=== PATIENT | female | born 1950 | race Caucasian/White ===

== ENCOUNTER → 2018-06-07 | Outpatient (REF) | payer MEDICARE, OTHER ==
[~2018-06-07] MED LIST: /AUGM875TA; ACET65TA; PRIL20CA
== END ==
LOC: M LAB REF 17:00
PROVIDERS: ATTEND Physician Assistant
DX: M54.5 Low back pain (principal)

== ENCOUNTER 2018-08-03 11:25 | Day surgery (SDC) | payer MEDICARE ==
[~2018-08-03] VITALS: Ht 152.4 cm; Wt 64.4 kg
[~2018-08-03 11:25] MED LIST changes: +AMLO10TA5 PO; +ASCO25TA PO; +ASPI81TA85 PO; +CALC1TAB9 PO; +CLOP75TA2 PO; +CYMB1CAP5 PO; +FERR325T3 PO; +MAG-84TA PO; +SIMV40TA2 PO; +STOO100C PO; +TIOT18INH INH; +VALS1TAB48 PO; +VITA-182 PO; +VITA250L PO
[2018-08-03] MEDS ORDERED: MIDAZOLAM INJ 2 MG/2 ML VIAL (J2250) As Ordered ONE (12:22)
[2018-08-03] MEDS ORDERED: CETACAINE SPRAY 5GM As Ordered ONE (13:16)
[2018-08-03 13:43] VITALS: BP 151/91
[2018-08-03] MEDS ORDERED: MIDAZOLAM INJ 2 MG/2 ML VIAL (J2250) IV ONE (14:30)
--- NOTE | 2018-08-03 17:55 | T-ECHO ---
DATE OF PROCEDURE: 08/03/2018 REFERRING PHYSICIAN: PREPROCEDURE DIAGNOSIS: Cryptogenic stroke. POSTPROCEDURE DIAGNOSIS: Cryptogenic stroke, patent foramen ovale with intraatrial septal aneurysm. FINDINGS: Patent foramen ovale associated with intraatrial septal aneurysm. PROCEDURE: Transesophageal echocardiogram with bubble study. SURGEON: Inocencio Le MD MEDIA ANALYTICS MANAGER: None. CONSCIOUS SEDATION: IV conscious sedation: Midazolam 2 mg IV. COMPLICATIONS: None. PROCEDURE DESCRIPTION: Patient received Cetacaine spray to the back of the pharynx. She received a total of 2 mg of Midazolam IV for light IV conscious sedation. Patient tolerated the procedure well without any immediate complications. Rhythm was sinus. Esophageal intubation was accomplished without difficulty using a Harsh's 3D transesophageal echocardiogram probe. A secundum type interatrial septal aneurysm was present. This was associated with a small patent foramen ovale that was demonstrated using a bubble injection via the right upper extremity with Valsalva maneuver release showing a small amount of shunting from the right atrium to the left atrium via the patent foramen ovale (PFO). The bubble study was accomplished using 8 mL of injectable normal saline with 1 mL of the patient's own blood withdrawn from the IV site combined with 1 mL of air which was then agitated back and forth between to 10 mL syringes by a three-way stopcock. The atrial appeared normal in size. No mass or thrombi were seen within the atria or their appendages. Pulmonary vein flow in the left upper pulmonary vein was normal. Aortic valve was three-cuspid and displayed mild focal thickening and focal calcific deposits. Trace aortic regurgitation was present. The mitral leaflets were structurally and functionally normal. Tricuspid leaflets and pulmonic valve were structurally and functionally normal. Normal left and right ventricle systolic function. The transgastric views were moderately technically difficult. No regional wall motion abnormalities of the left or right ventricles. No pericardial effusion. Distal aortic arch and descending thoracic aorta showed mild atherosclerosis. Left ventricle ejection fraction was 65% by visual estimate. CONCLUSIONS: 1. Small patent foramen ovale with right atrium to left atrium shunting demonstrated by bubble study with Valsalva maneuver release. 2. Secundum type interatrial septal aneurysm. 3. Very mild aortic valve sclerosis of a three-cuspid aortic valve. Trace aortic regurgitation. 4. Mild atherosclerosis of the distal aortic arch and descending thoracic aorta. 5. Normal left and right ventricle size and systolic function. Normal left ventricle regional wall motion. Left ventricular ejection fraction (LVEF) 65% by visual estimate.
== END 2018-08-03 13:59 | disposition home or self-care (01) ==
LOC: M OPP 11:25
PROVIDERS: ATTEND Internal Medicine Cardiovascular Disease
DX: I63.9 Cerebral infarction, unspecified (principal)
CPT/HCPCS: 93312; 93320; 93325; J2250

== ENCOUNTER 2018-08-05 10:46 | Day surgery (SDC) | payer MEDICARE ==
[~2018-08-05] VITALS: Ht 152.4 cm; Wt 64.8 kg
[~2018-08-05 10:46] MED LIST changes: +NS 1,000 ML IV SCH
[2018-08-05] MEDS ORDERED: ceFAZolin SOD 1 GM in D5W MINI-BAG PLUS 50 ML IV ONE (11:15)
[2018-08-05] MEDS ORDERED: LR 1,000 ML IV ONE (11:15)
[2018-08-05] MEDS ORDERED: LIDOCAINE 2% INJ 100 MG/5 ML SDV (FOR ANES.) As Ordered ONE (12:55)
[2018-08-05] MEDS ORDERED: PROPOFOL 200 MG/20 ML VIAL As Ordered ONE (12:55)
[2018-08-05] MEDS ORDERED: fentaNYL 100 MCG/2 ML INJECTION (J3010) As Ordered ONE (12:55)
[2018-08-05] MEDS ORDERED: MIDAZOLAM INJ 2 MG/2 ML VIAL (J2250) As Ordered ONE (12:55)
[2018-08-05] MEDS ORDERED: LIDOCAINE 1% MDV 20ML VIAL As Ordered ONE (13:54)
--- NOTE | 2018-08-05 14:22 | RO ---
DATE OF PROCEDURE: 08/05/2018 PREOPERATIVE DIAGNOSIS: Cryptogenic stroke. POSTOPERATIVE DIAGNOSIS: Cryptogenic stroke. PROCEDURE PERFORMED: Implantation of Medtronic implantable loop recorder. SURGEON: Inocencio Le MD LIFE TRAINER: None. ANESTHESIA: Lidocaine 1% local/monitored anesthetic care. FINDINGS: Cryptogenic stroke. No specimens. Estimated blood loss less than 1 mL. No blood products replaced. No drains. No complications. PROCEDURE DESCRIPTION: Patient was prepped and draped over the sternum and left anterior chest. Lidocaine 1% was used for local anesthetic. An incision, approximately 1 cm in length, was made with a #15 blade through the skin at approximately the left 4th interspace about 1 inch lateral to the left parasternal border. The guide on the insertion tool was then placed into the incision and advanced in the subcutaneous tissue parallel to the chest wall in a caudal direction. The insertion tool was then rotated 180 degrees. The plunger was used then to drive the loop recorder into the subcutaneous tissue. The plunger was removed and then the insertion tool was removed leaving the loop recorder behind. The initial R wave amplitude measured 0.31 mV. The skin was then approximated using a subcuticular stitch consisting of #4-0 Biosyn with the ends of the sutures protruding from the skin at both side of the incision. Next, two layers of Dermabond was applied. The Biosyn suture was then removed entirely from the incision line. Next, Mastisol was placed to both sides of the incision perpendicular to the incision being careful not to get the Mastisol on the Dermabond. After the Dermabond was dry, three half inch Steri-Strips cut in half were placed perpendicular to the incision line. Patient tolerated the procedure well without any immediate complications. The implantable loop recorder implanted was a [employer] Reveal LINQ, model LNQ11 with serial number [id number].
[2018-08-05 14:45] VITALS: BP 154/78
== END 2018-08-05 15:08 | disposition home or self-care (01) ==
LOC: M SDC 10:46
PROVIDERS: ATTEND Internal Medicine Cardiovascular Disease
DX: I63.9 Cerebral infarction, unspecified (principal); R94.31 Abnormal electrocardiogram [ECG] [EKG]; E83.42 Hypomagnesemia; E87.6 Hypokalemia; I10 Essential (primary) hypertension; E78.00 Pure hypercholesterolemia, unspecified; G25.81 Restless legs syndrome; F32.9 Major depressive disorder, single episode, unspecified; E55.9 Vitamin D deficiency, unspecified; D64.9 Anemia, unspecified; Z98.84 Bariatric surgery status; Z79.82 Long term (current) use of aspirin; Z79.899 Other long term (current) drug therapy; E66.3 Overweight
CPT/HCPCS: 33285; C1764; J0690; J2250; J3010

== ENCOUNTER 2018-08-09 11:59 | Inpatient (IN) | payer MEDICARE ==
[~2018-08-09] VITALS: Ht 152.4 cm; Wt 67.7 kg
[~2018-08-09 11:59] MED LIST changes: -ASCO25TA PO; -NS 1,000 ML IV SCH; -VALS1TAB48 PO; +VALS1TAB68 PO; +VITA1TAB23 PO
[2018-08-09] MEDS ORDERED: NS 1,000 ML IV ONE (12:15)
[2018-08-09 12:21] LABS: ABG BASE EXCESS -5.1 (-2.0-2.0); ABG HCO3 18.6 MEQ/L (22.0-26.0); ABG PARTIAL PRESSURE CO2 28.6 mmHg (35.0-45.0); ABG STANDARD HCO3 20.2 MEQ/L (22.0-26.0); ABG TOTAL CO2 19.5 MEQ/L (23.0-31.0); ABG pH (ARTERIAL) 7.432 UNITS (7.350-7.450)
[2018-08-09 12:37] LABS: BASO % 0.4 % (0.0-1.0); EOS % 0.6 % (0.0-3.0); LYMPH # 1.6 10^3/uL (1.5-4.5); LYMPH % 22.8 % (24.0-44.0); MEAN CORPUSCULAR HGB CONC 32.4 g/dl (32.0-36.5); MEAN CORPUSCULAR VOLUME 92.5 fl (80.0-96.0); MONO # 0.2 10^3/uL (0.0-0.8); MONO % 3.3 % (0.0-5.0); NEUTROPHILS % 71.5 % (36.0-66.0); PLATELET COUNT, AUTOMATED 233 10^3/uL (150-450); RED BLOOD COUNT 2.27 10^6/uL (4.00-5.40)
[2018-08-09 12:44] LABS: HEMOGLOBIN 6.8 g/dl (12.0-15.5)
--- NOTE | 2018-08-09 12:51 | REP ---
CT Head without contrast HISTORY: Syncope COMPARISON: None Areas of decreased attenuation are present in the basal ganglia. These represent old lacunar infarctions. Areas of decreased attenuation are present in the periventricular and subcortical white matter. This represents small-vessel ischemic disease. There is no intraparenchymal hemorrhage, acute infarct, mass or midline shift. The ventricular system and cortical sulci are dilated consistent with minimal volume loss. There is no extra cerebral collection. There is no fracture. The visualized sinuses are clear. IMPRESSION: 1. Old bilateral basal ganglia lacunar infarctions. 2. Small vessel ischemic disease. 3. Minimal volume loss. Electronically Signed by Cole Parrish MD 08/09/2018 12:42 P
[2018-08-09 12:53] LABS: INR 1.09; PARTIAL THROMBOPLASTIN TIME 23.7 SECONDS (25.4-37.6); PROTHROMBIN TIME 14.2 SECONDS (12.1-14.4)
--- NOTE | 2018-08-09 12:54 | REP ---
CT cervical spine without contrast HISTORY: Syncope COMPARISON: None There is no acute fracture or subluxation. Disc bulges are present at the C3-4, C4-5 and C6-7 levels. A disc bulge with associated osteophyte formation is present at the C5-6 level. There is minimal narrowing of the spinal canal. Uncinate process and/or facet hypertrophy are present at the the C3-4 through C5-6 levels. These findings produce minimal narrowing of the neural foramina. The C5-6 intervertebral disc is decreased in height consistent with disc degeneration. IMPRESSION: 1. There is no acute fracture or subluxation. 2. There is cervical spondylosis at the C3-4 through C6-7 levels. Electronically Signed by Cole Parrish MD 08/09/2018 12:46 P
[2018-08-09 13:09] LABS: BLOOD UREA NITROGEN 60 MG/DL (7-18); CARBON DIOXIDE LEVEL 22 MEQ/L (21-32); CHLORIDE LEVEL 110 MEQ/L (98-107); CPK CREATINE PHOSPHOKINASE 41 U/L (26-192); CREATININE FOR GFR 0.85 MG/DL (0.55-1.30); ETHYL ALCOHOL (ETHANOL) < 0.003 % (0.000-0.010); FREE T4 1.02 NG/DL (0.76-1.46); GLOMERULAR FILTRATION RATE > 60.0 (>45); GLUCOSE, FASTING 181 MG/DL (70-100); MB/CK RELATIVE INDEX 2.68 (< OR =4); POTASSIUM SERUM 3.9 MEQ/L (3.5-5.1); SODIUM LEVEL 142 MEQ/L (136-145); TROPONIN I < 0.02 NG/ML (< 0.10)
--- NOTE | 2018-08-09 13:57 | REP ---
CHEST, SINGLE VIEW: There is no evidence of acute infiltrate. No pleural effusion is seen. The heart is normal in size. The mediastinal silhouette is unremarkable. The visualized osseous structures are intact. IMPRESSION: No acute pulmonary disease. Electronically Signed by Lucio Mchugh MD 08/10/2018 10:12 A
[2018-08-09] MEDS: NS 1,000 ML IV SCH (14:19)
[2018-08-09] MEDS ORDERED: MORPHINE 4 MG/ML 1ML VIAL/SYRINGE (J2270) IV PRN (14:30)
--- NOTE | 2018-08-09 16:10 | HPE ---
DATE OF ADMISSION: 08/09/2017 68-year-old female with a past medical history of hypertension, hyperlipidemia, history of cryptogenic infarct secondary to PFO with left hemiparesis, dysarthria, presents to the emergency room after having a syncopal event while visiting a friend who just had a baby at [facility]. The patient apparently went apneic. Cardiopulmonary resuscitation (CPR) was performed with successful resuscitation and was brought to our emergency room for evaluation. In the emergency room, she was awake, alert and oriented times three with just rib pain, which likely came from the CPR. She has not had any similar symptoms in the past. At this time, she denies any chest pain or shortness of breath. She does note that she has had some blood in her mouth since she had her JUNE approximately 6 days ago. Routine laboratories showed her hemoglobin was 6.8, but her last hemoglobin documented here in 2008 was a hemoglobin of 10. She has no history of gastrointestinal bleed in the past. The patient was started on IV fluids and was typed and crossed for 2 units of packed red blood cell and 1 unit is about to be hung. She will be admitted for further management. PAST MEDICAL HISTORY: Again, past medical history of: 1. Hypertension. 2. Hyperlipidemia. 3. Morbid obesity, status post bariatric surgery. 4. History of cryptogenic stroke secondary to PFO with left hemiparesis and dysarthria, which is now resolved. 5. Depression. ALLERGIES: She has drug allergies to SULFA MEDICATIONS, SULFA CROSS REACTORS. FAMILY HISTORY: Negative for early coronary artery disease. SOCIAL HISTORY: The patient denies tobacco, alcohol, or illicit drugs. MEDICATIONS: She takes at home: - amlodipine 10 mg by mouth daily - vitamin C 250 mg by mouth daily - aspirin 81 mg by mouth daily - vitamin D3 1000 units by mouth daily - cyanocobalamin 250 mcg by mouth daily - Colace 100 mg by mouth daily - Cymbalta 30 mg by mouth daily - ferrous sulfate 325 mg by mouth daily - simvastatin 40 mg by mouth at bedtime - valsartan 320 mg by mouth daily - Plavix 75 mg by mouth daily - calcium citrate 950 mg by mouth daily - magnesium lactate 84 mg by mouth daily REVIEW OF SYSTEMS: Negative for all ten major systems except what is mentioned in the history of present illness. PHYSICAL EXAMINATION: VITAL SIGNS: Blood pressure 114/66, heart rate is 74 and regular, respiratory rate is 20, temperature is 95.8 temporal. Oxygen saturation is 100% on room air. Head is atraumatic, normocephalic. Pale conjunctivae noted. Neck is supple with no jugular venous distention (JVD). Lungs clear to auscultation. S1, S2 audible. No murmurs appreciated. Abdomen is soft. Positive bowel sounds. No pedal edema. Skin is intact. Neurologic examination, the patient has no focality and is awake, alert and oriented times three. LABORATORIES: WBC 7, hemoglobin 6.8, hematocrit 21, platelets are 233,000. Sodium 142, potassium 3.9, chloride 110, CO2 of 22, BUN 65, creatinine 0.85. Toxicology screen showed ethyl alcohol level less than 0.003. PT 14.2, INR 1.09, PTT is 22.7. 12-lead electrocardiogram (EKG) showed no acute ST abnormality. IMPRESSION: 1. Syncope. 2. Acute blood loss anemia. PLAN: The patient is to be admitted to the progressive care unit (PCU). We will get a second troponin to rule out acute coronary artery syndrome. Dr. Le saw the patient downstairs already and we have ruled out cardiac reasons for the syncope. THe loop recorder that she has on showed no evidence of arrhythmia. The likely scenario is that she has likely a slow bleed after the JUNE, which has caused her hemoglobin to drop and likely caused her to pass out. We will have Dr. Saravia see the patient. I will continue all preadmission medications, but I will hold her Plavix. We will continue her care in the progressive care unit (PCU). We will also follow her post transfusion complete blood count (CBC).
[2018-08-09 16:45] VITALS: BP 139/67
[2018-08-09] MEDS: PANTOPRAZOLE 40MG INJ (PROTONIX) (C9113) IV SCH (17:50)
--- NOTE | 2018-08-09 19:26 | REP ---
Clinical: Rule out esophageal injury. Technique: Axial noncontrast images from the thoracic inlet to the upper abdomen with coronal and sagittal re-formations. Findings: The bilateral lung patel are clear and without consolidation/contusion, effusion or pneumothorax. Tracheobronchial tree is patent. Mediastinum demonstrates atherosclerotic changes to the thoracic aorta and coronary arteries without aortic aneurysm or cardiomegaly. No pericardial effusion. The esophagus is relatively normal in appearance. No paraesophageal fluid or extraluminal gas is identified. No evidence for pneumomediastinum. Limited evaluation of the upper abdomen demonstrates prior gastric bypass surgery. Normal bilateral adrenal glands. Surrounding musculoskeletal structures demonstrate age-related changes without focal osseous abnormality. Impression: 1. Relatively normal noncontrast CT of the chest. No acute mediastinal or pleuroparenchymal process. Specifically, no obvious esophageal abnormality or pneumomediastinum. 2. Atherosclerotic changes to the thoracic aorta and coronary arteries. Electronically Signed by Darrion Carlton MD 08/09/2018 07:18 P
--- NOTE | 2018-08-09 19:57 | ECGEPIP ---
Stationary ECG Study [facility] - ED Test Date: 2018-08-09 Pat Name: SANJUANITA CAMERON Department: Room: [place] [address] Gender: F Brass Pickler: : 1950 Requested By: VERNON Cruz Order Number: [id number] Reading MD: Darin Parmar Measurements Intervals [place] Rate: 73 P: 30 GA: 168 QRS: -14 QRSD: 106 T: 94 QT: 418 QTc: 463 Interpretive Statements SINUS RHYTHM MODERATE T-WAVE ABNORMALITY, CONSIDER LATERAL ISCHEMIA NO PRIORS FOR COMPARISON Electronically Signed On 08-09-2018 19:56:55 EDT by Darin Parmar
[2018-08-09 20:00] VITALS: BP 111/63
[2018-08-09] MEDS: SIMVASTATIN 40 MG TAB PO SCH (22:06)
[2018-08-09 22:25] VITALS: BP 112/64
[2018-08-09 22:35] VITALS: BP 126/66
[2018-08-09] MEDS ORDERED: GOLYTELY SOLN 4000 ML BTL PO ONE (23:00)
[2018-08-09 23:35] VITALS: BP 122/62
[2018-08-10 01:25] VITALS: BP 139/77
[2018-08-10 01:59] LABS: HEMATOCRIT 26.6 % (36.0-47.0); HEMOGLOBIN 8.7 g/dl (12.0-15.5)
[2018-08-10] MEDS: NS 1,000 ML IV SCH ×3 (03:05→16:30)
[2018-08-10 04:00] VITALS: BP 132/64
[2018-08-10 05:02] LABS: BASO % 0.2 % (0.0-1.0); EOS # 0.1 10^3/uL (0.0-0.50); EOS % 0.5 % (0.0-3.0); HEMATOCRIT 27.2 % (36.0-47.0); HEMOGLOBIN 9.2 g/dl (12.0-15.5); LYMPH # 1.7 10^3/uL (1.5-4.5); LYMPH % 17.6 % (24.0-44.0); MEAN CORPUSCULAR HEMOGLOBIN 30.4 pg (27.0-33.0); MEAN CORPUSCULAR HGB CONC 33.8 g/dl (32.0-36.5); MEAN CORPUSCULAR VOLUME 89.8 fl (80.0-96.0); MONO # 0.6 10^3/uL (0.0-0.8); MONO % 6.2 % (0.0-5.0); NEUTROPHILS # 7.3 10^3/uL (1.8-7.7); PLATELET COUNT, AUTOMATED 197 10^3/uL (150-450); RED BLOOD COUNT 3.03 10^6/uL (4.00-5.40); WHITE BLOOD COUNT 9.7 10^3/uL (4.0-10.0)
[2018-08-10 05:20] LABS: BLOOD UREA NITROGEN 35 MG/DL (7-18); CALCIUM LEVEL 8.1 MG/DL (8.8-10.2); CARBON DIOXIDE LEVEL 25 MEQ/L (21-32); CHLORIDE LEVEL 111 MEQ/L (98-107); CREATININE FOR GFR 0.84 MG/DL (0.55-1.30); GLOMERULAR FILTRATION RATE > 60.0 (>45); GLUCOSE, FASTING 102 MG/DL (70-100); POTASSIUM SERUM 3.7 MEQ/L (3.5-5.1); SODIUM LEVEL 144 MEQ/L (136-145)
[2018-08-10] MEDS ORDERED: MAGNESIUM CITRATE 300 ML BTL PO ONE (06:00)
[2018-08-10] MEDS: PANTOPRAZOLE 40MG INJ (PROTONIX) (C9113) IV SCH ×2 (06:06→17:46)
[2018-08-10 08:00] VITALS: BP 172/81
--- NOTE | 2018-08-10 08:25 | CR.PDOC ---
General Surgery Consultation Date of Consultation 08/10/18 History and Physical CONSULT REPORT FOR: Dr. Healy (hospitalist service) REASON FOR CONSULTATION: Nausea and post hemorrhagic anemia HISTORY OF PRESENT ILLNESS: Patient is 68-year-old female who had a cardiorespiratory arrest this morning when she was visiting in our hospital. She was visiting someone in the hospital when she fainted in the hallways and was noted to be in respiratory arrest. She underwent CPR and was revived. She was brought down to the emergency room and was found to be profoundly anemic with a hemoglobin of 6.8. On talking to her she reports intermittent passage of black stools likewise spitting up of red blood for the past week. Coincidentally she underwent transesophageal echocardiogram last week. She is denying any chest pains, abdominal discomfort, hematochezia. She several years removed from gastric bypass. She denies any problems related to her gastric bypass. She denies any prior upper or lower endoscopy. She tells me she had acholic or test done earlier this year which was negative. She is on aspirin and Plavix for prior episodes of CVA. PAST MEDICAL HISTORY: 1.hypertension 2. CVA 3. hyperlipidemia 4. depression 5. h/o morbid obesity s/p gastric bypass PAST SURGICAL HISTORY: INCLUDES: 1. laparoscopic gastric bypass () 2. JUNE and placement of loop recorder last week PREVIOUS ANESTHESIA REACTIONS: denies ALLERGIES: Please see below. FAMILY HISTORY: noncontributory HOME MEDICATIONS: Please see below. REVIEW OF SYSTEMS: GENERAL: Patient denies feeling lightheaded though has been weak and from her daughter reports episodes of falls most recent about 2 weeks ago where she fell on her buttocks with some bruising on her left hip area. She has had at least 2 CVAs. She still has some problems with speech but denies any problems with swallowing. After the JUNE last week had some bleeding related to her tooth but denies any marcela hematemesis or hemoptysis. HEENT: Denies blurred vision and double vision. Denies ear symptoms. Denies hoarseness. NECK: Denies any neck pain CARDIOVASCULAR: She denies any chest pains but reports some palpitation-like symptoms. Recent see EEA and placement of loop recorder MUSCULOSKELETAL: Feels some generalized weakness, pain and left hip area from recent fall. SKIN: Resolving hematoma in the left hip. NEUROLOGIC: Patient with prior history of strokes. PSYCHIATRIC: Reports prior diagnosis of depression. ENDOCRINE: Denies thyroid disease. HEMATOLOGY/ONCOLOGY: Denies bleeding or clotting disorder. Patient on aspirin and Plavix for her CVA. PULMONARY: Denies chronic cough, dyspnea and wheezing. GASTROINTESTINAL: Reports passage of black stools and cleared of its tarry. She is on iron but reports his stools are darker than what's normal for an somewhat semi-formed. No previous colonoscopies were upper endoscopies. She is status post gastric bypass about 10 years ago. GENITOURINARY: Denies dysuria, frequency, hematuria and nocturia. ENDOCRINE: Denies polydipsia, polyphagia, polyuria, heat or cold intolerance. INFECTIOUS: Denies any recent upper respiratory tract infection, UTI, need for use of antibiotics. NUTRITION: Reports fair appetite. PHYSICAL EXAMINATION: VITALS SIGNS: Please see below. GENERAL APPEARANCE:Patient seen, laying in bed, awake, alert, and oriented. Comfortable, in no acute distress. SKIN: Warm and moist. HEENT: Normocephalic, atraumatic. [place]ie palpebral conjunctiva, anicteric sclerae. Lips and mucosa appear moist. NECK: Supple, no thyromegaly. No obvious jugular venous distention. LUNGS: Clear to auscultation bilaterally. No wheezing appreciated. HEART: No chest wall abnormalities. Regular rate and rhythm with no murmurs appreciated. ABDOMEN: Abdomen is nondistended, soft, nontender on palpation EXTREMITIES: Extremities have no deformities. No edema identified ANCILLARIES: . LABORATORY DATA: Please see below. IMAGING STUDIES: CT head 1. Old bilateral basal ganglia lacunar infarctions. 2. Small vessel ischemic disease. 3. Minimal volume loss. CT Chest 1. Relatively normal noncontrast CT of the chest. No acute mediastinal or pleuroparenchymal process. Specifically, no obvious esophageal abnormality or pneumomediastinum. 2. Atherosclerotic changes to the thoracic aorta and coronary arteries. IMPRESSION AND PLAN: Post hemorrhagic anemia gastric bypass status On my conversation with our hospitalist, ask him to perform a CT of the chest using a Storz some trauma related to her JUNE last week as initially she was reporting spitting out some blood after the procedure but this turns out to be because she had some loose tooth after the procedure. CT of the chest was negative for any contusion to the esophagus. She had previous gastric bypass and probably may be at risk for forming anastomotic ulcers. There are also some reports of patient's forming ulcers within the remnant stomach though this will be hard to discover via an endoscopy or any other study. She had a colon or test according to her early this year which was negative and still had a colonoscopy. Reports black stools with thus most likely source of bleeding is upper GI given that she has not had any previous colonoscopies I will prep her and at the same time perform a colonoscopy. Will schedule patient for UGI endoscopy and colonoscopy. Consent was obtained from the patient. Her daughter was at the bedside with her and they answered her questions and concerns at the time that I saw the patient. Further recommendations after the procedure. Vital Signs Vital Signs Date Time Temp Pulse Resp B/P (MAP) Pulse Ox O2 Delivery O2 Flow Rate FiO2 08/10/18 01:25 98.6 69 20 139/77 (97) 98 08/09/18 14:12 Room Air I&Os I&O- Last 24 Hours up to 6 AM 08/10/18 05:59 Intake Total 0 ml Output Total 900 ml Balance -900 ml Laboratory Data Labs 24H Laboratory Tests 2 08/09/18 12:03: Blood Gas Bicarbonate Standard 20.2L, Arterial Blood pH 7.432, Arterial Blood Partial Pressure CO2 28.6L, Arterial Blood Partial Pressure O2 378.0H, Arterial Blood Total CO2 19.5L, Arterial Blood HCO3 18.6L, Arterial Blood Base Excess - 5.1L, Arterial Blood Oxygen Saturation 99.0 08/09/18 12:25: Immature Granulocyte % (Auto) 1.4, White Blood Count 7.0, Red Blood Count 2.27L, Hemoglobin 6.8*L, Hematocrit 21.0L, Mean Corpuscular Volume 92.5, Mean Corpuscular Hemoglobin 30.0, Mean Corpuscular Hemoglobin Concent 32.4, Red Cell Distribution Width 14.3, Platelet Count 233, Neutrophils (%) (Auto) 71.5H, Lymphocytes (%) (Auto) 22.8L, Monocytes (%) (Auto) 3.3, Eosinophils (%) (Auto) 0.6, Basophils (%) (Auto) 0.4, Neutrophils # (Auto) 5.0, Lymphocytes # (Auto) 1.6, Monocytes # (Auto) 0.2, Eosinophils # (Auto) 0.0, Basophils # (Auto) 0.0, Nucleated Red Blood Cells % (auto) 0.0, Prothrombin Time 14.2, Prothromb Time International Ratio 1.09, Activated Partial Thromboplast Time 23.7L, Anion Gap 10, Glomerular Filtration Rate > 60.0, Blood Urea Nitrogen 60H, Creatinine 0.85, Sodium Level 142, Potassium Level 3.9, Chloride Level 110H, Carbon Dioxide Level 22, Calcium Level 9.0, Total Creatine Kinase 41, Magnesium Level 2.0, Creatine Kinase MB 1.0, Creatine Kinase MB Relative Index 2.68, Troponin I < 0.02, Thyroid Stimulating Hormone (TSH) 2.290, Free Thyroxine 1.02, Ethyl Alcohol Level < 0.003 08/09/18 17:45: Troponin I 0.04# CBC/BMP Laboratory Tests 08/09/18 12:25 Red Blood Count 2.27 L, Mean Corpuscular Volume 92.5, Mean Corpuscular Hemoglobin 30.0, Mean Corpuscular Hemoglobin Concent 32.4, Red Cell Distribution Width 14.3, Neutrophils (%) (Auto) 71.5 H, Lymphocytes (%) (Auto) 22.8 L, Monocytes (%) (Auto) 3.3, Eosinophils (%) (Auto) 0.6, Basophils (%) (Auto) 0.4, Neutrophils # (Auto) 5.0, Lymphocytes # (Auto) 1.6, Monocytes # (Auto) 0.2, Eosinophils # (Auto) 0.0, Basophils # (Auto) 0.0, Calcium Level 9.0, Total Creatine Kinase 41 Home Medications Scheduled Amlodipine Besylate (Amlodipine Besylate) 10 Mg Tab, 10 MG PO DAILY, (Reported) Ascorbic Acid (Vitamin C) 250 Mg Tab, 250 MG PO DAILY, (Reported) Aspirin (Aspir-81) 81 Mg Tab, 81 MG PO DAILY, (Reported) Calcium Citrate (Calcitrate) 950 Mg Tab, 950 MG PO DAILY, (Reported) Cholecalciferol (Vitamin D3) 1,000 Unit Cap, 1,000 UNIT PO DAILY, (Reported) Clopidogrel Bisulfate (Clopidogrel) 75 Mg Tab, 75 MG PO QHS, (Reported) Cyanocobalamin (Vitamin B 12) 250 Mcg Donte, 1,000 MCG PO DAILY, (Reported) Docusate Sodium (Stool Softener) 100 Mg Cap, 100 MG PO DAILY, (Reported) Duloxetine Hcl (Cymbalta) 30 Mg Cap, 30 MG PO DAILY, (Reported) Ferrous Sulfate (Ferrous Sulfate) 325 Mg Tab, 325 MG PO DAILY, (Reported) Magnesium Lactate (Mag-Tab Sr) 84 Mg Tab, 84 MG PO DAILY, (Reported) Simvastatin - High Dose (Simvastatin) 40 Mg Tab, 40 MG PO QHS, (Reported) Valsartan (Valsartan) 320 Mg Tab, 320 MG PO DAILY, (Reported) Allergies Coded Allergies: Sulfa (Sulfonamide Antibiotics) (Verified Allergy, Unknown, 08/10/18) STEFF VERA MD Aug 10, 2018 02:08
[2018-08-10] MEDS ORDERED: CYANOCOBALAMIN 250 MCG TABLET PO SCH (09:00)
[2018-08-10] MEDS: DOCUSATE SODIUM 100 MG CAP PO SCH (09:00)
[2018-08-10] MEDS: ASCORBIC ACID 250 MG TAB PO SCH (10:08)
[2018-08-10] MEDS: DULoxetine 30 MG CAP (CYMBALTA) PO SCH (10:08)
[2018-08-10] MEDS: amLODIPine 10 MG TAB PO SCH (10:09)
[2018-08-10] MEDS: VITAMIN D 1,000 INTERNATIONAL UNITS TABLET PO SCH (10:10)
[2018-08-10] MEDS: CYANOCOBALAMIN 500 MCG TAB PO SCH (10:10)
[2018-08-10] MEDS: VALSARTAN 80 MG TAB (DIOVAN) PO SCH (10:10)
[2018-08-10] MEDS: FERROUS SULFATE 325MG TAB PO SCH (10:11)
[2018-08-10 12:00] VITALS: BP 136/84
[2018-08-10] MEDS ORDERED: PROPOFOL 500 MG/50 ML VIAL As Ordered ONE (13:52)
[2018-08-10] MEDS ORDERED: fentaNYL 100 MCG/2 ML INJECTION (J3010) As Ordered ONE (13:53)
[2018-08-10] MEDS ORDERED: LIDOCAINE 2% INJ 100 MG/5 ML SDV (FOR ANES.) As Ordered ONE (13:53)
--- NOTE | 2018-08-10 13:59 | IPNPDOC ---
Subjective Date Seen The patient was seen on 08/10/18. Subjective Chief Complaint/HPI Patient seen and examined at the bedside. She reports that she is feeling much better this morning. However, notes that she has been having dark colored stools since yesterday. Her hemoglobin count has remained stable. She is tentatively scheduled for an EGD and colonoscopy today with general surgery. Objective Physical Examination General Exam: Positive: Alert, Cooperative, No Acute Distress ENT Exam: Positive: Atraumatic, Mucous membr. moist/pink Neck Exam: Negative: JVD Chest Exam: Positive: Clear to auscultation, Normal air movement Heart Exam: Positive: Rate Normal, Normal S1, Normal S2 Abdomen Exam: Positive: Soft Extremity Exam: Negative: Tenderness, Swelling Psych Exam: Positive: Oriented x 3 Assessment /Plan Plan/VTE VTE Prophylaxis Ordered?: Yes Plan Symptomatic Anemia/Syncope 2/2 Upper GI Bleed In patient with Hx of Laparoscopic Gastric Bypass Surgery in and recent JUNE on 08/03/18 Hgb noted to be 6.8 during work up s/p 2 Units of PRBC transfusion--stable H&H this AM Surgery consulted-->Patient scheduled for EGD and Colonoscopy today Patient NPO, IVF Hydration, IV Protonix ordered 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 Le as outpatient Hypertension Continue amlodipine, valsartan Dyslipidemia Continue statin Anxiety/depression Continue Cymbalta Hx of Laparoscopic Gastric Bypass Surgery in DVT Prophylaxis SCDs/TEDs VS, I&O, 24H, [facility] Vital Signs/I&O Vital Signs Date Time Temp Pulse Resp B/P (MAP) Pulse Ox O2 Delivery O2 Flow Rate FiO2 08/10/18 10:10 172/81 08/10/18 08:00 98.3 72 20 99 08/09/18 14:12 Room Air I&O- Last 24 Hours up to 6 AM 08/10/18 06:00 Intake Total 1375 ml Output Total 1000 ml Balance 375 ml Laboratory Data 24H LABS Laboratory Tests 2 08/09/18 17:45: Troponin I 0.04# 08/10/18 04:50: Immature Granulocyte % (Auto) 0.5, White Blood Count 9.7, Red Blood Count 3.03L, Hemoglobin 9.2L, Hematocrit 27.2L, Mean Corpuscular Volume 89.8, Mean Corpuscular Hemoglobin 30.4, Mean Corpuscular Hemoglobin Concent 33.8, Red Cell Distribution Width 15.7H, Platelet Count 197, Neutrophils (%) (Auto) 75.0H, Lymphocytes (%) (Auto) 17.6L, Monocytes (%) (Auto) 6.2H, Eosinophils (%) (Auto) 0.5, Basophils (%) (Auto) 0.2, Neutrophils # (Auto) 7.3, Lymphocytes # (Auto) 1.7, Monocytes # (Auto) 0.6, Eosinophils # (Auto) 0.1, Basophils # (Auto) 0.0, Nucleated Red Blood Cells % (auto) 0.0, Anion Gap 8, Glomerular Filtration Rate > 60.0, Blood Urea Nitrogen 35H, Creatinine 0.84, Sodium Level 144, Potassium Level 3.7, Chloride Level 111H, Carbon Dioxide Level 25, Calcium Level 8.1L CBC/BMP Laboratory Tests 08/10/18 01:49 08/10/18 04:50 Red Blood Count 3.03 L, Mean Corpuscular Volume 89.8, Mean Corpuscular Hemo globin 30.4, Mean Corpuscular Hemoglobin Concent 33.8, Red Cell Distribution Width 15.7 H, Neutrophils (%) (Auto) 75.0 H, Lymphocytes (%) (Auto) 17.6 L, Monocytes (%) (Auto) 6.2 H, Eosinophils (%) (Auto) 0.5, Basophils (%) (Auto) 0.2, Neutrophils # (Auto) 7.3, Lymphocytes # (Auto) 1.7, Monocytes # (Auto) 0.6, Eosinophils # (Auto) 0.1, Basophils # (Auto) 0.0, Calcium Level 8.1 L PRAVIN HARRISON MD Aug 10, 2018 13:59
--- NOTE | 2018-08-10 15:37 | ROOR ---
Patient Name: Niyah Block Procedure Date: 08/10/2018 2:49 PM Date of : 1950 Age: 68 Room: [facility] Gender: Female Note Status: Finalized Procedure: Upper GI endoscopy Indications: Acute post hemorrhagic anemia Providers: Antione Saravia MD Referring MD: Linda SYLVESTER DO Requesting Provider: Medicines: Monitored Anesthesia Care Complications: No immediate complications. Procedure: Pre-Anesthesia Assessment: - Prior to the procedure, a History and Physical was performed, and patient medications and allergies were reviewed. The patient is competent. The risks and benefits of the procedure and the sedation options and risks were discussed with the patient. All questions were answered and informed consent was obtained. Patient identification and proposed procedure were verified by the physician, the nurse and the quote clerk in the endoscopy suite. Mental Status Examination: alert and oriented. Airway Examination: normal oropharyngeal airway and neck mobility. Respiratory Examination: clear to auscultation. CV Examination: normal. Prophylactic Antibiotics: The patient does not require prophylactic antibiotics. Prior Anticoagulants: The patient has taken Plavix (clopidogrel), last dose was 1 day prior to procedure. ASA Grade Assessment: III - A patient with severe systemic disease. After reviewing the risks and benefits, the patient was deemed in satisfactory condition to undergo the procedure. The anesthesia plan was to use monitored anesthesia care (MAC). Immediately prior to administration of medications, the patient was re-assessed for adequacy to receive sedatives. The heart rate, respiratory rate, oxygen saturations, blood pressure, adequacy of pulmonary ventilation, and response to care were monitored throughout the procedure. The physical status of the patient was re-assessed after the procedure. The Endoscope was introduced through the mouth, and advanced to the efferent jejunal loop. The upper GI endoscopy was accomplished without difficulty. The patient tolerated the procedure well. Findings: The examined esophagus was normal. Estimated blood loss: none. A small hiatal hernia was present. Two non-bleeding linear gastric ulcers with no stigmata of bleeding were found at the anastomosis. The largest lesion was 1 mm in largest dimension. Localized mildly erythematous mucosa with active bleeding and with no stigmata of bleeding was found in the jejunum. with contact bleeding only Impression: - Normal esophagus. - Small hiatal hernia. - Non-bleeding gastric ulcers with no stigmata of bleeding. - Erythematous (hyperemic) jejunal mucosa. - No specimens collected. Recommendation: - [facility]. - Advance diet as tolerated. - Use Protonix (pantoprazole) 40 mg PO daily for 6 weeks. - Use sucralfate tablets 1 gram PO BID for 6 weeks. Antione Saravia MD Antione Saravia MD 08/10/2018 3:36:59 PM Electronically signed by Antione Saravia MD Number of Addenda: 0 Note Initiated On: 08/10/2018 2:49 PM Estimated Blood Loss: Estimated blood loss: none.
[2018-08-10] MEDS ORDERED: SIMETHICONE 40MG/0.6ML DROPS 30ML As Ordered ONE (15:38)
--- NOTE | 2018-08-10 15:41 | ROOR ---
Patient Name: Niyah Block Procedure Date: 08/10/2018 2:50 PM Date of : 1950 Age: 68 Room: [facility] Gender: Female Note Status: Finalized Procedure: Colonoscopy Indications: Acute post hemorrhagic anemia Providers: Antione Saravia MD Referring MD: Linda SYLVESTER DO Requesting Provider: Medicines: Monitored Anesthesia Care Complications: No immediate complications. Procedure: Pre-Anesthesia Assessment: - Prior to the procedure, a History and Physical was performed, and patient medications and allergies were reviewed. The patient is competent. The risks and benefits of the procedure and the sedation options and risks were discussed with the patient. All questions were answered and informed consent was obtained. Patient identification and proposed procedure were verified by the physician, the nurse and the service station helper in the endoscopy suite. Mental Status Examination: alert and oriented. Airway Examination: normal oropharyngeal airway and neck mobility. Respiratory Examination: clear to auscultation. CV Examination: normal. Prophylactic Antibiotics: The patient does not require prophylactic antibiotics. Prior Anticoagulants: The patient has taken Plavix (clopidogrel), last dose was 1 day prior to procedure. ASA Grade Assessment: III - A patient with severe systemic disease. After reviewing the risks and benefits, the patient was deemed in satisfactory condition to undergo the procedure. The anesthesia plan was to use monitored anesthesia care (MAC). Immediately prior to administration of medications, the patient was re-assessed for adequacy to receive sedatives. The heart rate, respiratory rate, oxygen saturations, blood pressure, adequacy of pulmonary ventilation, and response to care were monitored throughout the procedure. The physical status of the patient was re-assessed after the procedure. The Colonoscope was introduced through the anus and advanced to the cecum, identified by appendiceal orifice and ileocecal valve. The colonoscopy was somewhat difficult due to black stool present throughout colon. Successful completion of the procedure was aided by lavage. The patient tolerated the procedure well. The quality of the bowel preparation was poor. Findings: Hemorrhoids were found on perianal exam. There is no endoscopic evidence of bleeding, erythema or ulcerations in the entire colon. Two pedunculated polyps were found in the sigmoid colon. The polyps were 4 to 7 mm in size. These polyps were removed with a cold snare. Resection and retrieval were complete. For hemostasis, two hemostatic clips were successfully placed (MR conditional). There was no bleeding at the end of the procedure. No additional abnormalities were found on retroflexion. Impression: - Preparation of the colon was poor. - Hemorrhoids found on perianal exam. - Two 4 to 7 mm polyps in the sigmoid colon, removed with a cold snare. Resected and retrieved. Clips (MR conditional) were placed. Recommendation: - [facility]. Antione Saravia MD Antione Saravia MD 08/10/2018 3:40:32 PM Electronically signed by Antione Saravia MD Number of Addenda: 0 Note Initiated On: 08/10/2018 2:50 PM Estimated Blood Loss: Estimated blood loss was minimal.
[2018-08-10 16:00] VITALS: BP 120/65
[2018-08-10] MEDS: ASPIRIN 81 MG ENTERIC TAB PO SCH (16:29)
[2018-08-10 20:00] VITALS: BP 113/63
[2018-08-10] MEDS: SUCRALFATE 1 GM TAB PO SCH (20:00)
[2018-08-10] MEDS: SIMVASTATIN 40 MG TAB PO SCH (20:00)
[2018-08-11] VITALS: BP 112/58
[2018-08-11] MEDS: SIMETHICONE 80 MG CHEW TAB PO PRN ×2 (01:09→10:06)
[2018-08-11] MEDS: NS 1,000 ML IV SCH (03:26)
[2018-08-11 04:00] VITALS: BP 112/64
[2018-08-11] MEDS: PANTOPRAZOLE 40MG INJ (PROTONIX) (C9113) IV SCH ×2 (06:24→17:58)
[2018-08-11 08:00] VITALS: BP 118/65
[2018-08-11] MEDS: VITAMIN D 1,000 INTERNATIONAL UNITS TABLET PO SCH (08:38)
[2018-08-11] MEDS: FERROUS SULFATE 325MG TAB PO SCH (08:38)
[2018-08-11] MEDS: CYANOCOBALAMIN 500 MCG TAB PO SCH (08:38)
[2018-08-11] MEDS: SUCRALFATE 1 GM TAB PO SCH ×2 (08:39→20:21)
[2018-08-11] MEDS: ASCORBIC ACID 250 MG TAB PO SCH (08:39)
[2018-08-11] MEDS: DULoxetine 30 MG CAP (CYMBALTA) PO SCH (08:39)
[2018-08-11] MEDS: ASPIRIN 81 MG ENTERIC TAB PO SCH (08:39)
[2018-08-11] MEDS: VALSARTAN 80 MG TAB (DIOVAN) PO SCH (08:52)
[2018-08-11] MEDS: amLODIPine 10 MG TAB PO SCH (08:53)
[2018-08-11] MEDS: DOCUSATE SODIUM 100 MG CAP PO SCH (08:53)
[2018-08-11 12:00] VITALS: BP 135/67
[2018-08-11 12:11] LABS: HEMATOCRIT 25.9 % (36.0-47.0); HEMOGLOBIN 8.7 g/dl (12.0-15.5)
[2018-08-11 16:00] VITALS: BP 131/67
[2018-08-11 18:17] LABS: HEMATOCRIT 26.4 % (36.0-47.0); HEMOGLOBIN 8.6 g/dl (12.0-15.5); MEAN CORPUSCULAR HEMOGLOBIN 29.5 pg (27.0-33.0); MEAN CORPUSCULAR HGB CONC 32.6 g/dl (32.0-36.5); MEAN CORPUSCULAR VOLUME 90.4 fl (80.0-96.0); PLATELET COUNT, AUTOMATED 179 10^3/uL (150-450); RED BLOOD COUNT 2.92 10^6/uL (4.00-5.40); WHITE BLOOD COUNT 7.5 10^3/uL (4.0-10.0)
[2018-08-11 20:00] VITALS: BP 130/72
[2018-08-11] MEDS: SIMVASTATIN 40 MG TAB PO SCH (20:21)
[2018-08-12] VITALS: BP 133/61
--- NOTE | 2018-08-12 00:31 | IPNPDOC ---
Subjective Date Seen The patient was seen on 08/11/18. Subjective Chief Complaint/HPI Syncope, GIB Events since last encounter No further black tarry stools overnight, no dizziness or light headed ness. Had EGD and COLONOSCOPY yesterday. Objective Physical Examination General Exam: Positive: Alert, Cooperative, No Acute Distress ENT Exam: Positive: Atraumatic, Mucous membr. moist/pink Neck Exam: Negative: JVD Chest Exam: Positive: Clear to auscultation, Normal air movement Heart Exam: Positive: Rate Normal, Normal S1, Normal S2 Abdomen Exam: Positive: Soft Extremity Exam: Negative: Tenderness, Swelling Psych Exam: Positive: Oriented x 3 Assessment /Plan Assessment Patient is 68-year-old female who had a cardiorespiratory arrest this morning when she was visiting in our hospital. 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 She underwent CPR and was revived. She was brought down to the emergency room and was found to be profoundly anemic with a hemoglobin of 6.8. On talking to her she reports intermittent passage of black stools likewise spitting up of red blood for the past week. She was admiited for Acute GIB and Acute blood loss anemia. Symptomatic Anemia/Syncope 2/2 Upper GI Bleed , Acute blood loss anemia. In patient with Hx of Laparoscopic Gastric Bypass Surgery in and recent JUNE on 08/03/18 Hgb noted to be 6.8 during work up s/p 2 Units of PRBC transfusion EGD showed non bleeding gastric ulcers and hyperemic jejunal mucosa Most probably bleeding happened from the stomach and anastomotic site. conoloscopy showed poplps removed, internal hemorroids. 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 Le as outpatient Hypertension Continue amlodipine, valsartan Dyslipidemia Continue statin Anxiety/depression Continue Cymbalta Hx of Laparoscopic Gastric Bypass Surgery in DVT Prophylaxis SCDs/TEDs Plan/VTE VTE Prophylaxis Ordered?: Yes VS, I&O, 24H, Fishbone Vital Signs/I&O Vital Signs Date Time Temp Pulse Resp B/P (MAP) Pulse Ox O2 Delivery O2 Flow Rate FiO2 08/11/18 20:00 98.9 61 18 130/72 (91) 100 08/09/18 14:12 Room Air I&O- Last 24 Hours up to 6 AM 08/12/18 06:00 Intake Total 1300 ml Output Total 25 ml Balance 1275 ml Laboratory Data 24H LABS Laboratory Tests 2 08/11/18 18:01: Nucleated Red Blood Cells % (auto) 0.0 CBC/BMP Laboratory Tests 08/11/18 11:53 08/11/18 18:01 Red Blood Count 2.92 L, Mean Corpuscular Volume 90.4, Mean Corpuscular Hemoglobin 29.5, Mean Corpuscular Hemoglobin Concent 32.6, Red Cell Distribution Width 15.8 H JOSE MARCUM MD Aug 12, 2018 00:31
[2018-08-12 00:39] LABS: HEMATOCRIT 22.4 % (36.0-47.0); HEMOGLOBIN 7.5 g/dl (12.0-15.5)
[2018-08-12 03:40] LABS: BLOOD UREA NITROGEN 10 MG/DL (7-18); CALCIUM LEVEL 7.6 MG/DL (8.8-10.2); CARBON DIOXIDE LEVEL 25 MEQ/L (21-32); CHLORIDE LEVEL 112 MEQ/L (98-107); CREATININE FOR GFR 0.67 MG/DL (0.55-1.30); GLOMERULAR FILTRATION RATE > 60.0 (>45); GLUCOSE, FASTING 95 MG/DL (70-100); POTASSIUM SERUM 3.6 MEQ/L (3.5-5.1); SODIUM LEVEL 146 MEQ/L (136-145)
[2018-08-12 04:00] VITALS: BP 110/70
[2018-08-12] MEDS: PANTOPRAZOLE 40MG INJ (PROTONIX) (C9113) IV SCH ×2 (06:25→17:49)
[2018-08-12 07:41] LABS: BASO % 0.5 % (0.0-1.0); EOS # 0.1 10^3/uL (0.0-0.50); EOS % 1.6 % (0.0-3.0); HEMATOCRIT 28.6 % (36.0-47.0); HEMOGLOBIN 9.4 g/dl (12.0-15.5); LYMPH # 1.4 10^3/uL (1.5-4.5); LYMPH % 23.3 % (24.0-44.0); MEAN CORPUSCULAR HEMOGLOBIN 29.7 pg (27.0-33.0); MEAN CORPUSCULAR HGB CONC 32.9 g/dl (32.0-36.5); MEAN CORPUSCULAR VOLUME 90.2 fl (80.0-96.0); MONO # 0.3 10^3/uL (0.0-0.8); MONO % 5.5 % (0.0-5.0); NEUTROPHILS # 4.2 10^3/uL (1.8-7.7); NEUTROPHILS % 68.8 % (36.0-66.0); PLATELET COUNT, AUTOMATED 175 10^3/uL (150-450); RED BLOOD COUNT 3.17 10^6/uL (4.00-5.40); WHITE BLOOD COUNT 6.2 10^3/uL (4.0-10.0)
[2018-08-12 08:00] VITALS: BP 152/82
[2018-08-12] MEDS: VALSARTAN 80 MG TAB (DIOVAN) PO SCH (08:10)
[2018-08-12] MEDS: DOCUSATE SODIUM 100 MG CAP PO SCH (08:21)
[2018-08-12] MEDS: SUCRALFATE 1 GM TAB PO SCH ×2 (08:21→21:11)
[2018-08-12] MEDS: FERROUS SULFATE 325MG TAB PO SCH (08:21)
[2018-08-12] MEDS: ASCORBIC ACID 250 MG TAB PO SCH (08:21)
[2018-08-12] MEDS: VITAMIN D 1,000 INTERNATIONAL UNITS TABLET PO SCH (08:21)
[2018-08-12] MEDS: DULoxetine 30 MG CAP (CYMBALTA) PO SCH (08:21)
[2018-08-12] MEDS: CYANOCOBALAMIN 500 MCG TAB PO SCH (08:22)
[2018-08-12] MEDS: amLODIPine 10 MG TAB PO SCH (08:22)
[2018-08-12] MEDS: ASPIRIN 81 MG ENTERIC TAB PO SCH (08:22)
--- NOTE | 2018-08-12 10:04 | IPNPDOC ---
Subjective General Date/Time Seen The patient was seen on 08/12/18 at 09:57. Subject Chief Complaint/History I visited our patient today. She was eating her breakfast. She reports feeling well. She denies any nausea, vomiting, abdominal discomfort. She has not had a bowel movement since her bowel prep 2 days ago. I noted that her hemoglobin last night dropped and she received 1 unit of packed RBCs and repeat this morning shows this to go up as high as 9.2 Current Medications Current Medications Current Medications Amlodipine Besylate (Norvasc) 10 mg DAILY PO Last administered on 08/12/18 08:22; Start 08/10/18 at 09:00 Ascorbic Acid (Vitamin C) 250 mg DAILY PO Last administered on 08/12/18 08:21; Start 08/10/18 at 09:00 Aspirin (Ecotrin) 81 mg DAILY PO Last administered on 08/12/18 08:22; Start 08/10/18 at 09:00 Cyanocobalamin (Vitamin B12) 1,000 mcg DAILY PO ; Start 08/10/18 at 09:00; Stop 08/10/18 at 09:28; Status DC Cyanocobalamin (Vitamin B12) 1,000 mcg DAILY PO Last administered on 08/12/18 08:22; Start 08/10/18 at 09:00 Docusate Sodium (Colace) 100 mg DAILY PO Last administered on 08/12/18 08:21; Start 08/10/18 at 09:00 Duloxetine HCl (Cymbalta) 30 mg DAILY PO Last administered on 08/12/18 08:21; Start 08/10/18 at 09:00 Ferrous Sulfate (Ferrous Sulfate) 325 mg DAILY PO Last administered on 08/12/18 08:21; Start 08/10/18 at 09:00 Home Med (Med Rec Complete!) ASDIRECTED XX ; Start 08/09/18 at 14:45; Stop 08/09/18 at 14:45; Status DC Morphine Sulfate (Morphine Sulfate Inj) 2 mg Q2HP PRN IV SEVERE PAIN (PS 8-10) Last administered on 08/10/18 06:50; Start 08/09/18 at 14:30 Pantoprazole Sodium (Protonix) 40 mg Q12H IV Last administered on 08/12/18 06:25; Start 08/09/18 at 18:00 Simethicone (Mylicon) 80 mg TIDP PRN PO GAS PAIN Last administered on 08/11/18 10:06; Start 08/11/18 at 01:00 Simvastatin (Zocor) 40 mg QHS PO Last administered on 08/11/18 20:21; Start 08/09/18 at 21:00 Sodium Chloride 1,000 ml @ 75 mls/hr [id number] IV Last administered on 08/11/18 03:26; Start 08/09/18 at 14:19; Stop 08/11/18 at 10:03; Status DC Sucralfate (Carafate) 1 gm BID PO Last administered on 08/12/18 08:21; Start 08/10/18 at 21:00 Valsartan (Diovan) 320 mg DAILY PO Last administered on 08/10/18 10:10; Start 08/10/18 at 09:00 Vitamin D (Vitamin D) 1,000 units DAILY PO Last administered on 08/12/18 08:21; Start 08/10/18 at 09:00 Allergies Coded Allergies: Sulfa (Sulfonamide Antibiotics) (Verified Allergy, Unknown, 08/10/18) Objective Physical Examination Examination GENERAL APPEARANCE: Patient seen comfortable, she was sitting up eating her breakfast on a chair. SKIN: Warm and dry. HEENT: Normocephalic, atraumatic. pale palpebral conjunctiva, anicteric sclerae. Lips and mucosa appear moist. Slight dysarthria with speech NECK: Supple, no thyromegaly. No obvious jugular venous distention. LUNGS: Clear to auscultation bilaterally. No wheezing appreciated. HEART: No chest wall abnormalities. Regular rate and rhythm with no murmurs appreciated. ABDOMEN: Abdomen is flat, soft, and nondistended. Nontender on palpation. EXTREMITIES: Mild lower extremity edema. Vital Signs Vital Signs Date Time Temp Pulse Resp B/P (MAP) Pulse Ox O2 Delivery O2 Flow Rate FiO2 08/12/18 08:22 64 152/82 08/12/18 08:00 98.8 18 98 08/09/18 14:12 Room Air I&Os I&O- Last 24 Hours up to 6 AM 08/12/18 06:00 Intake Total 1300 ml Output Total 425 ml Balance 875 ml Laboratory Data Labs 24H Laboratory Tests 2 08/11/18 18:01: Nucleated Red Blood Cells % (auto) 0.0 08/12/18 03:10: Anion Gap 9, Glomerular Filtration Rate > 60.0, Blood Urea Nitrogen 10#, Creatinine 0.67, Sodium Level 146H, Potassium Level 3.6, Chloride Level 112H, Ca rbon Dioxide Level 25, Calcium Level 7.6L 08/12/18 07:17: Nucleated Red Blood Cells % (auto) 0.0, Immature Granulocyte % (Auto) 0.3, White Blood Count 6.2, Red Blood Count 3.17L, Hemoglobin 9.4L, Hematocrit 28.6L, Mean Corpuscular Volume 90.2, Mean Corpuscular Hemoglobin 29.7, Mean Corpuscular Hemoglobin Concent 32.9, Red Cell Distribution Width 15.0H, Platelet Count 175, Neutrophils (%) (Auto) 68.8H, Lymphocytes (%) (Auto) 23.3L, Monocytes (%) (Auto) 5.5H, Eosinophils (%) (Auto) 1.6, Basophils (%) (Auto) 0.5, Neutrophils # (Auto) 4.2, Lymphocytes # (Auto) 1.4L, Monocytes # (Auto) 0.3, Eosinophils # (Auto) 0.1, Basophils # (Auto) 0.0 CBC/BMP Laboratory Tests 08/11/18 11:53 08/11/18 18:01 Red Blood Count 2.92 L, Mean Corpuscular Volume 90.4, Mean Corpuscular Hemoglobin 29.5, Mean Corpuscular Hemoglobin Concent 32.6, Red Cell Distribution Width 15.8 H 08/12/18 00:22 08/12/18 03:10 Calcium Level 7.6 L 08/12/18 07:17 Red Blood Count 3.17 L, Mean Corpuscular Volume 90.2, Mean Corpuscular Hemoglobin 29.7, Mean Corpuscular Hemoglobin Concent 32.9, Red Cell Distribution Width 15.0 H, Neutrophils (%) (Auto) 68.8 H, Lymphocytes (%) (Auto) 23.3 L, Monocytes (%) (Auto) 5.5 H, Eosinophils (%) (Auto) 1.6, Basophils (%) (Auto) 0.5, Neutrophils # (Auto) 4.2, Lymphocytes # (Auto) 1.4 L, Monocytes # (Auto) 0.3, Eosinophils # (Auto) 0.1, Basophils # (Auto) 0.0 Impression Posthemorrhagic anemia Gastric bypass status Anastomotic ulcer I reviewed with her and her daughter the endoscopy in colonoscopy results. She did have some chronic appearing anastomotic ulcers but there was no stigmata of bleed. She has a little bit of friable tissue opposite that with slight contact bleed. She has a small amount of hematin processed particles on the gastric pouch. Given her profound anemia I would think this will be discharged bleed but this was not definitive. I looked into the literature with regards to the incidence of duodenal ulcer formation and gastric bypass patients is not really known. Most common risks factors is a gastro-gastric fistula. Treatment still will be discontinued a PPI and suggest using Carafate for the anastomotic inflammation. I suggest continuing to observe the patient's course if there is a drastic drop in the hemoglobin suggest performing a bleeding scan especially in light of that she is not having any passage of bloody stools or melanotic stools to suggest active bleeding. Plan / VTE VTE Prophylaxis Ordered?: No VTE Exclusion Pharmacological: Bleeding Risk STEFF VERA MD Aug 12, 2018 10:04
[2018-08-12 12:00] VITALS: BP 146/79
[2018-08-12 12:27] LABS: HEMATOCRIT 30.5 % (36.0-47.0); HEMOGLOBIN 10.3 g/dl (12.0-15.5)
[2018-08-12 16:00] VITALS: BP 107/56
[2018-08-12 18:01] LABS: HEMATOCRIT 29.3 % (36.0-47.0); HEMOGLOBIN 9.8 g/dl (12.0-15.5)
--- NOTE | 2018-08-12 18:32 | IPNPDOC ---
Subjective Date Seen The patient was seen on 08/12/18. Subjective Chief Complaint/HPI No complaints this morning, has not had any bowel movements today. Denies any abdominal pain , nausea or vomiting, no light headedness or dizziness. Objective Physical Examination General Exam: Positive: Alert, Cooperative, No Acute Distress ENT Exam: Positive: Atraumatic, Mucous membr. moist/pink Neck Exam: Negative: JVD Chest Exam: Positive: Clear to auscultation, Normal air movement Heart Exam: Positive: Rate Normal, Normal S1, Normal S2 Abdomen Exam: Positive: Soft Extremity Exam: Negative: Tenderness, Swelling Psych Exam: Positive: Oriented x 3 Assessment /Plan Assessment Patient is 68-year-old female who had a cardiorespiratory arrest this morning when she was visiting in our hospital. 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 She underwent CPR and was revived. She was brought down to the emergency room and was found to be profoundly anemic with a hemoglobin of 6.8. On talking to her she reports intermittent passage of black stools likewise spitting up of red blood for the past week. She was admitted for Acute GIB and Acute blood loss anemia. Symptomatic Anemia/Syncope 2/2 Upper GI Bleed , Acute blood loss anemia. In patient with Hx of Laparoscopic Gastric Bypass Surgery in and rece nt JUNE on 08/03/18 Hgb noted to be 6.8 during work up s/p 3 Units of PRBC transfusion EGD showed non bleeding gastric ulcers and hyperemic jejunal mucosa Most probably bleeding happened from the stomach and anastomotic site. colonoscopy showed polyps. Removed, internal hemorrhoids. Pateint had again a drop in HH and received another unit will continue to monitor HH if continues to drop will need bleeding scan to find the source of active bleeding. 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 Le as outpatient Hypertension Continue amlodipine, valsartan Dyslipidemia Continue statin Anxiety/depression Continue Cymbalta Hx of Laparoscopic Gastric Bypass Surgery in DVT Prophylaxis SCDs/TEDs Plan/VTE VTE Prophylaxis Ordered?: No VTE Exclusion Pharmacological: Bleeding Risk VS, I&O, 24H, Fishbone Vital Signs/I&O Vital Signs Date Time Temp Pulse Resp B/P (MAP) Pulse Ox O2 Delivery O2 Flow Rate FiO2 08/12/18 16:00 99.2 60 16 107/56 (73) 96 08/09/18 14:12 Room Air I&O- Last 24 Hours up to 6 AM 08/12/18 06:00 Intake Total 1300 ml Output Total 425 ml Balance 875 ml Laboratory Data 24H LABS Laboratory Tests 2 08/12/18 03:10: Anion Gap 9, Glomerular Filtration Rate > 60.0, Blood Urea Nitrogen 10#, Creatinine 0.67, Sodium Level 146H, Potassium Level 3.6, Chloride Level 112H, Carbon Dioxide Level 25, Calcium Level 7.6L 08/12/18 07:17: Immature Granulocyte % (Auto) 0.3, White Blood Count 6.2, Red Blood Count 3.17L, Hemoglobin 9.4L, Hematocrit 28.6L, Mean Corpuscular Volume 90.2, Mean Corpuscular Hemoglobin 29.7, Mean Corpuscular Hemoglobin Concent 32.9, Red Cell Distribution Width 15.0H, Platelet Count 175, Neutrophils (%) (Auto) 68.8H, Lymphocytes (%) (Auto) 23.3L, Monocytes (%) (Auto) 5.5H, Eosinophils (%) (Auto) 1.6, Basophils (%) (Auto) 0.5, Neutrophils # (Auto) 4.2, Lymphocytes # (Auto) 1.4L, Monocytes # (Auto) 0.3, Eosinophils # (Auto) 0.1, Basophils # (Auto) 0.0, Nucleated Red Blood Cells % (auto) 0.0 CBC/BMP Laboratory Tests 08/12/18 00:22 08/12/18 03:10 Calcium Level 7.6 L 08/12/18 07:17 Red Blood Count 3.17 L, Mean Corpuscular Volume 90.2, Mean Corpuscular Hemoglobin 29.7, Mean Corpuscular Hemoglobin Concent 32.9, Red Cell Distribution Width 15.0 H, Neutrophils (%) (Auto) 68.8 H, Lymphocytes (%) (Auto) 23.3 L, Monocytes (%) (Auto) 5.5 H, Eosinophils (%) (Auto) 1.6, Basophils (%) (Auto) 0.5, Neutrophils # (Auto) 4.2, Lymphocytes # (Auto) 1.4 L, Monocytes # (Auto) 0.3, Eosinophils # (Auto) 0.1, Basophils # (Auto) 0.0 08/12/18 11:43 08/12/18 17:40 JOSE MARCUM MD Aug 12, 2018 18:32
[2018-08-12 20:00] VITALS: BP 145/88
[2018-08-12] MEDS: SIMVASTATIN 40 MG TAB PO SCH (21:11)
[2018-08-13] VITALS: BP 124/69
[2018-08-13 00:01] LABS: HEMATOCRIT 27.4 % (36.0-47.0); HEMOGLOBIN 9.1 g/dl (12.0-15.5)
[2018-08-13 04:00] VITALS: BP 129/80
[2018-08-13] MEDS: PANTOPRAZOLE 40MG INJ (PROTONIX) (C9113) IV SCH ×2 (05:25→17:46)
[2018-08-13 05:37] LABS: BASO % 0.6 % (0.0-1.0); EOS # 0.1 10^3/uL (0.0-0.50); EOS % 2.1 % (0.0-3.0); HEMATOCRIT 26.8 % (36.0-47.0); HEMOGLOBIN 8.8 g/dl (12.0-15.5); LYMPH # 1.6 10^3/uL (1.5-4.5); LYMPH % 30.5 % (24.0-44.0); MEAN CORPUSCULAR HEMOGLOBIN 29.4 pg (27.0-33.0); MEAN CORPUSCULAR HGB CONC 32.8 g/dl (32.0-36.5); MEAN CORPUSCULAR VOLUME 89.6 fl (80.0-96.0); MONO # 0.4 10^3/uL (0.0-0.8); NEUTROPHILS # 3.1 10^3/uL (1.8-7.7); NEUTROPHILS % 59.4 % (36.0-66.0); PLATELET COUNT, AUTOMATED 173 10^3/uL (150-450); RED BLOOD COUNT 2.99 10^6/uL (4.00-5.40); WHITE BLOOD COUNT 5.1 10^3/uL (4.0-10.0)
[2018-08-13 06:01] LABS: BLOOD UREA NITROGEN 9 MG/DL (7-18); CARBON DIOXIDE LEVEL 27 MEQ/L (21-32); CHLORIDE LEVEL 111 MEQ/L (98-107); CREATININE FOR GFR 0.71 MG/DL (0.55-1.30); GLOMERULAR FILTRATION RATE > 60.0 (>45); GLUCOSE, FASTING 81 MG/DL (70-100); POTASSIUM SERUM 3.1 MEQ/L (3.5-5.1); SODIUM LEVEL 146 MEQ/L (136-145)
[2018-08-13 07:49] VITALS: BP 126/66
[2018-08-13] MEDS: amLODIPine 10 MG TAB PO SCH (07:53)
[2018-08-13] MEDS: FERROUS SULFATE 325MG TAB PO SCH (07:55)
[2018-08-13] MEDS: VALSARTAN 80 MG TAB (DIOVAN) PO SCH (07:55)
[2018-08-13] MEDS: ASPIRIN 81 MG ENTERIC TAB PO SCH (07:56)
[2018-08-13] MEDS: DULoxetine 30 MG CAP (CYMBALTA) PO SCH (07:56)
[2018-08-13] MEDS: SUCRALFATE 1 GM TAB PO SCH ×2 (07:57→21:00)
[2018-08-13] MEDS: ASCORBIC ACID 250 MG TAB PO SCH (07:57)
[2018-08-13] MEDS: CYANOCOBALAMIN 500 MCG TAB PO SCH (07:57)
[2018-08-13] MEDS: DOCUSATE SODIUM 100 MG CAP PO SCH (07:57)
[2018-08-13] MEDS: VITAMIN D 1,000 INTERNATIONAL UNITS TABLET PO SCH (07:58)
[2018-08-13 08:44] LABS: FERRITIN 74 NG/ML (8-252); IRON (FE) 35 UG/DL (50-170); PERCENT SATURATION 14.3 % (13.2-45.0); TOTAL IRON BINDING CAPACITY 244 UG/DL (250-450)
[2018-08-13] MEDS ORDERED: POTASSIUM CHLORIDE 10 MEQ SR TABLET PO ONE (09:00)
--- NOTE | 2018-08-13 13:47 | IPNPDOC ---
Subjective Date Seen The patient was seen on 08/13/18. Subjective Chief Complaint/HPI No complaints this am . No bowel movements today. HH dipped down again today will continue to monitor, no abdominal pain , or nausea or vomiting or diarrhea. Objective Physical Examination General Exam: Positive: Alert, Cooperative, No Acute Distress ENT Exam: Positive: Atraumatic, Mucous membr. moist/pink Neck Exam: Negative: JVD Chest Exam: Positive: Clear to auscultation, Normal air movement Heart Exam: Positive: Rate Normal, Normal S1, Normal S2 Abdomen Exam: Positive: Soft Extremity Exam: Negative: Tenderness, Swelling Psych Exam: Positive: Oriented x 3 Assessment /Plan Assessment Patient is 68-year-old female who had a cardiorespiratory arrest this morning when she was visiting in our hospital. 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 She underwent CPR and was revived. She was brought down to the emergency room and was found to be profoundly anemic with a hemoglobin of 6.8. On talking to her she reports intermittent passage of black stools likewise spitting up of red blood for the past week. She was admitted for Acute GIB and Acute blood loss anemia. Symptomatic Anemia/Syncope 2/2 Upper GI Bleed , Acute blood loss anemia. In patient with Hx of Laparoscopic Gastric Bypass Surgery in and recent JUNE on 08/03/18 Hgb noted to be 6.8 during work up s/p 3 Units of PRBC transfusion EGD showed non bleeding gastric ulcers and hyperemic jejunal mucosa Most probably bleeding happened from the stomach and anastomotic site. colonoscopy showed polyps. Removed, internal hemorrhoids. Pateint had again a drop in HH and received another unit will continue to monitor HH if continues to drop will need bleeding scan to find the source of active bleeding. 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 Le as outpatient Hypertension Continue amlodipine, valsartan Dyslipidemia Continue statin Anxiety/depression Continue Cymbalta Hx of Laparoscopic Gastric Bypass Surgery in DVT Prophylaxis SCDs/TEDs Plan/VTE VTE Prophylaxis Ordered?: No VTE Exclusion Pharmacological: Bleeding Risk VS, I&O, 24H, Fishbone Vital Signs/I&O Vital Signs Date Time Temp Pulse Resp B/P (MAP) Pulse Ox O2 Delivery O2 Flow Rate FiO2 08/13/18 07:49 98.0 58 18 126/66 (86) 96 08/09/18 14:12 Room Air I&O- Last 24 Hours up to 6 AM 08/13/18 06:00 Intake Total 660 ml Output Total 2120 ml Balance -1460 ml Laboratory Data 24H LABS Laboratory Tests 2 08/13/18 04:56: Immature Granulocyte % (Auto) 0.4, White Blood Count 5.1, Red Blood Count 2.99L, Hemoglobin 8.8L, Hematocrit 26.8L, Mean Corpuscular Volume 89.6, Mean Corpuscular Hemoglobin 29.4, Mean Corpuscular Hemoglobin Concent 32.8, Red Cell Distribution Width 14.9H, Platelet Count 173, Neutrophils (%) (Auto) 59.4, Lymphocytes (%) (Auto) 30.5, Monocytes (%) (Auto) 7.0H, Eosinophils (%) (Auto) 2.1, Basophils (%) (Auto) 0.6, Neutrophils # (Auto) 3.1, Lymphocytes # (Auto) 1.6, Monocytes # (Auto) 0.4, Eosinophils # (Auto) 0.1, Basophils # (Auto) 0.0, Nucleated Red Blood Cells % (auto) 0.0, Anion Gap 8, Glomerular Filtration Rate > 60.0, Blood Urea Nitrogen 9, Creatinine 0.71, Sodium Level 146H, Potassium Level 3.1L, Chloride Level 111H, Carbon Dioxide Level 27, Calcium Level 8.0L 08/13/18 08:02: Iron Level 35L, Total Iron Binding Capacity 244L, Transferrin % Saturation 14.3, Ferritin 74 CBC/BMP Laboratory Tests 08/12/18 17:40 08/12/18 23:46 08/13/18 04:56 Red Blood Count 2.99 L, Mean Corpuscular Volume 89.6, Mean Corpuscular Hemoglobin 29.4, Mean Corpuscular Hemoglobin Concent 32.8, Red Cell Distribution Width 14.9 H, Neutrophils (%) (Auto) 59.4, Lymphocytes (%) (Auto) 30.5, Monocytes (%) (Auto) 7.0 H, Eosinophils (%) (Auto) 2.1, Basophils (%) (Auto) 0.6, Neutrophils # (Auto) 3.1, Lymphocytes # (Auto) 1.6, Monocytes # (Auto) 0.4, Eosinophils # (Auto) 0.1, Basophils # (Auto) 0.0, Calcium Level 8.0 L JOSE MARCUM MD Aug 13, 2018 13:47
[2018-08-13] MEDS ORDERED: MOM 30ML SUSPENSION UDC PO PRN (14:00)
[2018-08-13 14:20] VITALS: BP 126/70
[2018-08-13] MEDS: SIMVASTATIN 40 MG TAB PO SCH (21:01)
[2018-08-13 22:00] VITALS: BP 134/71
[2018-08-14] MEDS: PANTOPRAZOLE 40MG INJ (PROTONIX) (C9113) IV SCH (05:02)
[2018-08-14 06:00] VITALS: BP 140/65
[2018-08-14 06:32] LABS: BASO % 0.4 % (0.0-1.0); EOS # 0.1 10^3/uL (0.0-0.50); EOS % 2.7 % (0.0-3.0); HEMATOCRIT 27.3 % (36.0-47.0); HEMOGLOBIN 9.1 g/dl (12.0-15.5); LYMPH # 1.3 10^3/uL (1.5-4.5); LYMPH % 24.1 % (24.0-44.0); MEAN CORPUSCULAR HEMOGLOBIN 30.4 pg (27.0-33.0); MEAN CORPUSCULAR HGB CONC 33.3 g/dl (32.0-36.5); MEAN CORPUSCULAR VOLUME 91.3 fl (80.0-96.0); MONO # 0.4 10^3/uL (0.0-0.8); MONO % 6.8 % (0.0-5.0); NEUTROPHILS # 3.5 10^3/uL (1.8-7.7); NEUTROPHILS % 65.6 % (36.0-66.0); PLATELET COUNT, AUTOMATED 184 10^3/uL (150-450); RED BLOOD COUNT 2.99 10^6/uL (4.00-5.40); WHITE BLOOD COUNT 5.3 10^3/uL (4.0-10.0)
[2018-08-14 06:58] LABS: BLOOD UREA NITROGEN 8 MG/DL (7-18); CALCIUM LEVEL 8.2 MG/DL (8.8-10.2); CARBON DIOXIDE LEVEL 31 MEQ/L (21-32); CHLORIDE LEVEL 108 MEQ/L (98-107); CREATININE FOR GFR 0.76 MG/DL (0.55-1.30); GLOMERULAR FILTRATION RATE > 60.0 (>45); GLUCOSE, FASTING 80 MG/DL (70-100); POTASSIUM SERUM 3.5 MEQ/L (3.5-5.1); SODIUM LEVEL 145 MEQ/L (136-145)
[2018-08-14] MEDS ORDERED: FUROSEMIDE 20 MG/2 ML VIAL (J1940) IV ONE (09:00)
[2018-08-14] MEDS ORDERED: LASI20TA3 PO (09:01)
[2018-08-14] MEDS ORDERED: SIME80TA PO (09:01)
[2018-08-14] MEDS ORDERED: SUCR1TA PO (09:01)
[2018-08-14] MEDS ORDERED: PROT1TAB2 PO (09:01)
[2018-08-14] MEDS ORDERED: ACETAMINOPHEN TAB 650MG DOSE (2X325MG) PO ONE (09:15)
[2018-08-14] MEDS: ASCORBIC ACID 250 MG TAB PO SCH (09:20)
[2018-08-14] MEDS: VALSARTAN 80 MG TAB (DIOVAN) PO SCH (09:20)
[2018-08-14 09:21] VITALS: BP 165/78
[2018-08-14] MEDS: amLODIPine 10 MG TAB PO SCH (09:21)
[2018-08-14] MEDS: SUCRALFATE 1 GM TAB PO SCH (09:21)
[2018-08-14] MEDS: DULoxetine 30 MG CAP (CYMBALTA) PO SCH (09:21)
[2018-08-14] MEDS: VITAMIN D 1,000 INTERNATIONAL UNITS TABLET PO SCH (09:21)
[2018-08-14] MEDS: DOCUSATE SODIUM 100 MG CAP PO SCH (09:22)
[2018-08-14] MEDS: FERROUS SULFATE 325MG TAB PO SCH (09:22)
[2018-08-14] MEDS: CYANOCOBALAMIN 500 MCG TAB PO SCH (09:22)
[2018-08-14] MEDS: ASPIRIN 81 MG ENTERIC TAB PO SCH (09:22)
[2018-08-16 14:01] LABS: VITAMIN B12 LEVEL > 2000 PG/ML (247-911)
--- NOTE | 2018-08-23 14:12 | DS.PDOC ---
Discharge Summary General Date of Admission Aug 09, 2018 at 14:19 Date of Discharge 08/14/18 Attending Physician: JOSE MARCUM MD Discharge Summary PROCEDURES PERFORMED DURING STAY: 08/10/18 Colonoscopy : Hemorrhoids were found on perianal exam. There is no endoscopic evidence of bleeding, erythema or ulcerations in the entire colon. Two pedunculated polyps were found in the sigmoid colon. The polyps were 4 to 7 mm in size. These polyps were removed with a cold snare. Resection and retrieval were complete. For hemostasis, two hemostatic clips were successfully placed (MR conditional). There was no bleeding at the end of the procedure. No additional abnormalities were found on retroflexion. Endoscopy: The examined esophagus was normal. Estimated blood loss: none. A small hiatal hernia was present. Two non-bleeding linear gastric ulcers with no stigmata of bleeding were found at the anastomosis. The largest lesion was 1 mm in largest dimension. Localized mildly erythematous mucosa with active bleeding and with no stigmata of bleeding was found in the jejunum. with contact bleeding only DISCHARGE DIAGNOSES: Syncope Acute Blood loss anemia GIB probably from gastric ulcer and anastomotic ulcer Old CVA with residual left sided weakness. PFO and left interatrial septal aneurysm. H/O gastric bypass surgery Anxiety and depression Hypertension Dyslipidemia. COMPLICATIONS/CHIEF COMPLAINT: Acute Blood Loss Anemia,Syncope And Collapse. HISTORY OF PRESENT ILLNESS: See History and physical HOSPITAL COURSE: Patient is 68-year-old female who had a cardiorespiratory arrest this morning when she was visiting in our hospital. 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 She underwent CPR and was revived. She was brought down to the emergency room and was found to be profoundly anemic with a hemoglobin of 6.8. On talking to her she reports intermittent passage of black stools likewise spitting up of red blood for the past week. She was admitted for Acute GIB and Acute blood loss anemia. Symptomatic Anemia/Syncope 2/2 Upper GI Bleed , Acute blood loss anemia. In patient with Hx of Laparoscopic Gastric Bypass Surgery in and recent JUNE on 08/03/18 Hgb noted to be 6.8 during work up s/p 3 Units of PRBC transfusion EGD showed non bleeding gastric ulcers and hyperemic jejunal mucosa Most probably bleeding happened from the stomach and anastomotic site. colonoscopy showed polyps. Removed, internal hemorrhoids. Now HH is stable. 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 Le as outpatient Hypertension Continue amlodipine, valsartan Dyslipidemia Continue statin Anxiety/depression Continue Cymbalta Hx of Laparoscopic Gastric Bypass Surgery in DISCHARGE MEDICATIONS: Please see below. ALLERGIES: Please see below. PHYSICAL EXAMINATION ON DISCHARGE: VITAL SIGNS: Please see below. General Exam: Positive: Alert, Cooperative, No Acute Distress ENT Exam: Positive: Atraumatic, Mucous membr. moist/pink Neck Exam: Negative: JVD Chest Exam: Positive: Clear to auscultation, Normal air movement Heart Exam: Positive: Rate Normal, Normal S1, Normal S2 Abdomen Exam: Positive: Soft Extremity Exam: Negative: Tenderness, Swelling Psych Exam: Positive: Oriented x 3 LABORATORY DATA: Please see below. ACTIVITY: [As tolerated]. DIET: As tolerated DISPOSITION: 01 Home, Self-Care. DISCHARGE INSTRUCTIONS: PMD in [address] Saravia in 3 weeks ITEMS TO FOLLOWUP ON ON OUTPATIENT: Monitor HH if again starts dropping will need referral to GI for capsule endoscopy/ push enteroscopy DISCHARGE CONDITION: [Stable]. TIME SPENT ON DISCHARGE: Greater than 30 minutes. Vital Signs/I&Os Vital Signs Label Value Date Time Patient Temperature 97.3 degrees F 08/14/18 06 Temperature Source Temporal 08/14/18 06 Pulse 64 08/14/18 06 Respiratory Rate 16 bpm 08/14/18 06 Blood Pressure Assessment 140/65 (90) 08/14/18 06 Bedside Pulse Oximetry 97 % 08/14/18 06 Laboratory Data CBC/BMP Item Value Date Time White Blood Count 5.3 10^3/uL 08/14/18 06 Red Blood Count 2.99 10^6/uL L 08/14/18 06 Hemoglobin 9.1 g/dl L 08/14/18 06 Hematocrit 27.3 % L 08/14/18 06 Mean Corpuscular Volume 91.3 fl 3/31602 Mean Corpuscular Hemoglobin 30.4 pg 08/14/18602 Mean Corpuscular Hemoglobin Concent 33.3 g/dl 08/14/18602 Red Cell Distribution Width 14.9 % H 08/14/18602 Platelet Count 184 10^3/uL 08/14/1803 Immature Granulocyte % (Auto) 0.4 % 08/14/18602 Neutrophils (%) (Auto) 65.6 % 08/14/18 06 Lymphocytes (%) (Auto) 24.1 % 08/14/1803 Monocytes (%) (Auto) 6.8 % H 08/14/18602 Eosinophils (%) (Auto) 2.7 % 08/14/18602 Basophils (%) (Auto) 0.4 % 08/14/18602 Neutrophils # (Auto) 3.5 10^3/uL 08/14/18 0603 Lymphocytes # (Auto) 1.3 10^3/uL L 08/14/1803 Monocytes # (Auto) 0.4 10^3/uL 08/14/18 0603 Eosinophils # (Auto) 0.1 10^3/uL 08/14/18 0603 Basophils # (Auto) 0.0 10^3/uL 08/14/1803 Nucleated Red Blood Cells % (auto) 0.0 % 08/14/1803 Sodium Level 145 MEQ/L 08/14/1803 Potassium Level 3.5 MEQ/L 08/14/1803 Chloride Level 108 MEQ/L H 08/14/1803 Carbon Dioxide Level 31 MEQ/L 08/14/1803 Anion Gap 6 MEQ/L L 08/14/1803 Blood Urea Nitrogen 8 MG/DL 08/14/1803 Creatinine 0.76 MG/DL 08/14/18602 Glomerular Filtration Rate > 60.0 08/14/1803 Fasting Glucose 80 MG/DL 08/14/1803 Calcium Level 8.2 MG/DL L 08/14/1803 Vitamin B12 Level > 2000 PG/ML H 08/13/18 0802 Folate 8.0 NG/ML 08/13/18 0802 Iron Level 35 UG/DL L 08/13/18 0802 Total Iron Binding Capacity 244 UG/DL L 08/13/18 0802 Transferrin % Saturation 14.3 % 08/13/18 0802 Ferritin 74 NG/ML 08/13/18 0802 Discharge Medications Scheduled Amlodipine Besylate (Amlodipine Besylate) 10 Mg Tab, 10 MG PO DAILY, (Reported) Ascorbic Acid (Vitamin C) 250 Mg Tab, 250 MG PO DAILY, (Reported) Aspirin (Aspir 81) 81 Mg Tab, 81 MG PO DAILY, (Reported) Calcium Citrate (Calcitrate) 950 Mg Tab, 950 MG PO DAILY, (Reported) Cholecalciferol (Vitamin D3) 1,000 Unit Cap, 1,000 UNIT PO DAILY, (Reported) Cyanocobalamin (Vitamin B-12) (Vitamin B-12) 250 Mcg Donte, 1,000 MCG PO DAILY, (Reported) Docusate Sodium (Stool Softener) 100 Mg Cap, 100 MG PO DAILY, (Reported) Duloxetine Hcl (Cymbalta) 30 Mg Cap, 30 MG PO DAILY, (Reported) Ferrous Sulfate (Ferrous Sulfate) 325 Mg Tab, 325 MG PO DAILY, (Reported) Furosemide (Lasix) 20 Mg Tab, 1 TAB PO DAILY For 3 days only Magnesium l-Lactate (Mag-Tab Sr) 84 Mg Tab, 84 MG PO DAILY, (Reported) Pantoprazole Sodium (Protonix) 40 Mg Tab, 40 MG PO BID Simvastatin (Simvastatin) 40 Mg Tab, 40 MG PO QHS, (Reported) Sucralfate (Sucralfate) 1 Gm Tab, 1 GM PO BID Valsartan (Valsartan) 320 Mg Tab, 320 MG PO DAILY, (Reported) Scheduled PRN Simethicone (Simethicone) 80 Mg Chew, 80 MG PO TIDP PRN for GAS PAIN Allergies Coded Allergies: Sulfa (Sulfonamide Antibiotics) (Verified Allergy, Unknown, 08/10/18) JOSE MARCUM MD Aug 23, 2018 14:12
== END 2018-08-14 10:32 | disposition home or self-care (01) | DRG 377 ==
LOC: M ED 11:59 → M ED INP 14:19 → M PCU 16:46 → M MSPAV 08-13 14:06
PROVIDERS: ADMIT Internal Medicine; ATTEND Internal Medicine Nephrology
PROC: 30233N1 Transfusion of Nonautologous Red Blood Cells into Peripheral Vein, Percutaneous Approach (ICD-10-PCS; principal; 2018-08-09)
PROC: 0DJ08ZZ Inspection of Upper Intestinal Tract, Via Natural or Artificial Opening Endoscopic (ICD-10-PCS; 2018-08-10)
PROC: 0DBN8ZX Excision of Sigmoid Colon, Via Natural or Artificial Opening Endoscopic, Diagnostic (ICD-10-PCS; 2018-08-10)
DX: K25.4 Chronic or unspecified gastric ulcer with hemorrhage (principal); R09.2 Respiratory arrest; D62 Acute posthemorrhagic anemia; I69.354 Hemiplegia and hemiparesis following cerebral infarction affecting left non-dominant side; Q21.1 Atrial septal defect; F41.9 Anxiety disorder, unspecified; F32.9 Major depressive disorder, single episode, unspecified; I10 Essential (primary) hypertension; E78.5 Hyperlipidemia, unspecified; K28.4 Chronic or unspecified gastrojejunal ulcer with hemorrhage; D12.5 Benign neoplasm of sigmoid colon; K44.9 Diaphragmatic hernia without obstruction or gangrene; I69.322 Dysarthria following cerebral infarction; Z79.899 Other long term (current) drug therapy; Z79.82 Long term (current) use of aspirin; Z88.2 Allergy status to sulfonamides; Z98.84 Bariatric surgery status

== ENCOUNTER → 2020-01-11 | Outpatient (CLI) | payer MEDICARE, MEDICAID ==
[~2020-01-11] MED LIST changes: -AMLO10TA5 PO; +AMLO1TAB25 PO; -ASPI81TA85 PO; +ASPI81TA86 PO; +LASI20TA3 PO; +MM S100C PO; +PROT1TAB2 PO; +SIME80TA PO; -SIMV40TA2 PO; +SIMV40TA20 PO; -STOO100C PO; +SUCR1TA PO; -VITA1TAB23 PO; +VITA250T20 PO
--- NOTE | 2020-01-18 15:18 | REP ---
SONOGRAPHY RIGHT GROIN WITH DOPPLER HISTORY: Status post cardiac catheterization procedure right groin 10/03/2018. Right groin and thigh pain. Rule out pseudoaneurysm. FINDINGS: Two-dimensional scanning is performed through the right groin with color Doppler and pulsed wave Doppler interrogation. There is no evidence of pseudoaneurysm, hematoma, or seroma. Normal triphasic Doppler waveforms are noted. Right common femoral artery peak systolic velocity is normal 96 cm/s. The proximal SFA PSV is 107 cm/s and mid SFA PSV 76.0 cm/s. Waveforms are normal. IMPRESSION: Unremarkable soft tissue sonography. No evidence of pseudoaneurysm. MTDD
== END ==
LOC: M RAD 14:35
PROVIDERS: ATTEND Internal Medicine Cardiovascular Disease
DX: I63.40 Cerebral infarction due to embolism of unspecified cerebral artery (principal); Q21.1 Atrial septal defect; R10.31 Right lower quadrant pain; M25.551 Pain in right hip

== ENCOUNTER → 2020-07-11 | Outpatient (REF) | payer MEDICARE, MEDICAID ==
[~2020-07-11] MED LIST changes: +SIME80CH5 PO; -SIME80TA PO
== END ==
LOC: EEVIPCON 17:07 → M LAB REF 17:07
PROVIDERS: ATTEND Family Medicine
DX: N39.0 Urinary tract infection, site not specified (principal)

== ENCOUNTER 2021-09-05 13:22 | Emergency (ER) | payer MEDICARE, MEDICAID ==
[~2021-09-05] VITALS: Ht 154.9 cm; Wt 70.5 kg
[2021-09-05 16:13] LABS: BASO % 0.6 % (0.0-1.0); EOS # 0.1 10^3/uL (0.0-0.5); EOS % 1.6 % (0.0-3.0); HEMATOCRIT 27.1 % (36.0-47.0); HEMOGLOBIN 8.5 g/dl (12.0-15.5); LYMPH # 1.4 10^3/uL (1.5-5.0); LYMPH % 28.1 % (24.0-44.0); MEAN CORPUSCULAR HEMOGLOBIN 30.5 pg (27.0-33.0); MEAN CORPUSCULAR HGB CONC 31.4 g/dl (32.0-36.5); MEAN CORPUSCULAR VOLUME 97.1 fl (80.0-96.0); MONO # 0.3 10^3/uL (0.0-0.8); MONO % 5.5 % (2.0-8.0); NEUTROPHILS # 3.3 10^3/uL (1.5-8.5); PLATELET COUNT, AUTOMATED 302 10^3/uL (150-450); RED BLOOD COUNT 2.79 10^6/uL (4.00-5.40); WHITE BLOOD COUNT 5.1 10^3/uL (4.0-10.0)
[2021-09-05 16:31] LABS: INR 0.93; PARTIAL THROMBOPLASTIN TIME 26.5 SECONDS (25.9-37.0); PROTHROMBIN TIME 12.9 SECONDS (12.7-14.5)
[2021-09-05 16:44] LABS: BLOOD UREA NITROGEN 18 MG/DL (7-18); CALCIUM LEVEL 9.9 MG/DL (8.8-10.2); CARBON DIOXIDE LEVEL 28 MEQ/L (21-32); CHLORIDE LEVEL 107 MEQ/L (98-107); CREATININE FOR GFR 0.93 MG/DL (0.55-1.30); FREE T4 0.97 NG/DL (0.76-1.46); GLOMERULAR FILTRATION RATE > 60.0 (>45); GLUCOSE, FASTING 93 MG/DL (70-100); MAGNESIUM LEVEL 2.2 MG/DL (1.8-2.4); POTASSIUM SERUM 3.9 MEQ/L (3.5-5.1); SODIUM LEVEL 143 MEQ/L (136-145)
[2021-09-05 18:37] VITALS: BP 153/70
== END 2021-09-05 18:46 | disposition home or self-care (01) ==
LOC: M ED 13:22
DX: R53.83 Other fatigue (principal); D64.9 Anemia, unspecified; R22.43 Localized swelling, mass and lump, lower limb, bilateral; R79.9 Abnormal finding of blood chemistry, unspecified; I10 Essential (primary) hypertension; Z98.84 Bariatric surgery status; Z88.2 Allergy status to sulfonamides

== ENCOUNTER → 2021-10-07 | Outpatient (CLI) | payer MEDICARE, MEDICAID ==
[2021-10-07 18:10] LABS: APPEARANCE, URINE CLEAR (CLEAR); BACTERIA, URINE AUTO NEGATIVE (NEGATIVE); BILIRUBIN, URINE AUTO NEGATIVE (NEGATIVE); BLOOD, URINE BLOOD NEGATIVE (NEGATIVE); COLOR, URINE YELLOW (YELLOW); GLUCOSE, URINE (UA) AUTO NEGATIVE (NEGATIVE); KETONE, URINE AUTO NEGATIVE (NEGATIVE); LEUKOCYTE ESTERASE, URINE AUTO NEGATIVE (NEGATIVE); NITRITE, URINE AUTO NEGATIVE (NEGATIVE); PROTEIN, URINE AUTO NEGATIVE (NEGATIVE); RBC, URINE AUTO 3 /HPF (0-3); SPECIFIC GRAVITY URINE AUTO 1.012 (1.002-1.035); SQUAMOUS EPITHELIAL CELL UR AU 0 /HPF (0-6); UROBILINOGEN, URINE AUTO 0.2 mg/dL (0.0-2.0); WBC, URINE AUTO 0 /HPF (0-3)
== END ==
LOC: M RAD 12:36
PROVIDERS: ATTEND Nurse Practitioner Adult Health
DX: R10.32 Left lower quadrant pain (principal)

== ENCOUNTER → 2022-01-01 | Outpatient (CLI) | payer MEDICARE, MEDICAID | LOC: M RAD 11:06 | PROVIDERS: ATTEND Physician Assistant | DX: I25.10 Atherosclerotic heart disease of native coronary artery without angina pectoris (principal) ==

== ENCOUNTER → 2022-03-10 | Outpatient (REF) | payer MEDICARE, MEDICAID ==
[2022-03-10 18:43] LABS: APPEARANCE, URINE MANUAL CLEAR (CLEAR); BILIRUBIN, URINE MANUAL NEGATIVE (NEGATIVE); COLOR, URINE MANUAL YELLOW (YELLOW); GLUCOSE, URINE (UA) MANUAL NEGATIVE (NEGATIVE); KETONE, URINE MANUAL NEGATIVE (NEGATIVE); NITRITE, URINE MANUAL POSITIVE (NEGATIVE); PROTEIN, URINE MANUAL NEGATIVE (NEGATIVE); SPECIFIC GRAVITY,URINE MANUAL 1.015 (1.002-1.035); UROBILINOGEN, URINE MANUAL NORMAL (NORMAL)
[2022-03-10 18:44] LABS: BLOOD URINE MANUAL TRACE (NEGATIVE); LEUKOCYTE ESTERASE, URINE MAN TRACE (NEGATIVE)
[2022-03-10 20:16] LABS: BACTERIA, URINE LARGE AMOUNT; RBC, URINE 0-1 /hpf (0-3); SQUAMOUS EPITHELIAL CELL URINE SMALL AMOUNT /hpf (SMALL AMT)
== END ==
LOC: M LAB REF 17:18
PROVIDERS: ATTEND Nurse Practitioner Adult Health
DX: R30.0 Dysuria (principal)

== ENCOUNTER → 2022-06-05 | Outpatient (CLI) | payer MEDICARE, MEDICAID ==
[~2022-06-05] MED LIST changes: +ISOVUE-370 76% 100ML VIAL As Ordered ONE
== END ==
LOC: M RAD 12:27
PROVIDERS: ATTEND Physician Assistant
DX: I65.23 Occlusion and stenosis of bilateral carotid arteries (principal)
CPT/HCPCS: 70496; 70498; Q9967

== ENCOUNTER → 2022-07-02 | Outpatient (CLI) | payer MEDICARE, MEDICAID ==
[~2022-07-02] MED LIST changes: -ISOVUE-370 76% 100ML VIAL As Ordered ONE; +PROHANCE 279.3MG/ML 15ML VIAL As Ordered ONE
== END ==
LOC: M RAD 14:26
PROVIDERS: ATTEND Physician Assistant
DX: I65.23 Occlusion and stenosis of bilateral carotid arteries (principal)
CPT/HCPCS: 70549; A9576

== ENCOUNTER → 2022-07-31 | Outpatient (CLI) | payer MEDICARE, MEDICAID ==
[~2022-07-31] MED LIST changes: -PROHANCE 279.3MG/ML 15ML VIAL As Ordered ONE
== END ==
LOC: M LABSMTC 10:01
PROVIDERS: ATTEND Physician Assistant
DX: Z01.818 Encounter for other preprocedural examination (principal); Z11.52 Encounter for screening for COVID-19

== ENCOUNTER → 2022-11-27 | Outpatient (CLI) | payer MEDICARE, MEDICAID | LOC: M CARPUL 08:33 | PROVIDERS: ATTEND Family Medicine | DX: I35.0 Nonrheumatic aortic (valve) stenosis (principal); Z86.73 Personal history of transient ischemic attack (TIA), and cerebral infarction without residual deficits ==

== ENCOUNTER 2024-12-14 20:44 | Emergency (ER) | payer MEDICARE, MEDICAID ==
[2024-12-14 21:20] LABS: BASO # 0.0 10^3/uL (0.0-0.2); BASO % 0.2 % (0.0-1.0); EOS # 0.0 10^3/uL (0.0-0.5); EOS % 0.1 % (0.0-3.0); LYMPH # 2.1 10^3/uL (1.5-5.0); LYMPH % 8.0 % (24.0-44.0); MONO # 0.5 10^3/uL (0.0-0.8); MONO % 1.7 % (2.0-8.0); NEUTROPHILS # 23.3 10^3/uL (1.5-8.5); NEUTROPHILS % 89.1 % (36.0-66.0); PLATELET COUNT, AUTOMATED 454 10^3/uL (150-450)
[2024-12-14] MEDS ORDERED: ISOVUE-370 76% 100 ML VIAL As Ordered ONE (21:36)
[2024-12-14 21:42] LABS: INR 1.06
[2024-12-14] MEDS: PANTOPRAZOLE SODIUM 40 MG in DEXTROSE 5% (D5W) ADV/MINI-BAG 50 ML IV SCH (21:57)
[2024-12-14] MEDS: ONDANSETRON 4MG 2ML VIAL IV ONE (21:57)
[2024-12-14] MEDS: PANTOPRAZOLE 40MG VIAL IV ONE (21:57)
[2024-12-14] MEDS: NS (Normal Saline) 0.9% 1,000 ML IV ONE (21:58)
[2024-12-14 22:21] LABS: CK-MB VALUE MASS 1.7 NG/ML (<3.6)
[2024-12-14 22:28] LABS: ALT/SGPT 12 U/L (7.0-40); AST/SGOT 17 U/L (<34); CPK CREATINE PHOSPHOKINASE 42 U/L (34-145); MB/CK RELATIVE INDEX 4.04 (< OR =4)
[2024-12-14 22:45] VITALS: BP 77/78; TEMP 97; O2SAT 98
[2024-12-14] MEDS ORDERED: ATOR40TA75 PO (23:01)
[2024-12-14] MEDS ORDERED: CLOP75TA2 PO (23:01)
[2024-12-14] MEDS ORDERED: ROPI0.5T33 PO (23:01)
[2024-12-14] MEDS ORDERED: ECOT81TA5 PO (23:01)
[2024-12-14] MEDS ORDERED: DULO1CAP6 PO (23:01)
[2024-12-14] MEDS ORDERED: PANT40TA29 PO (23:01)
[2024-12-14] MEDS ORDERED: D-10TAB3 PO (23:01)
[2024-12-14] MEDS ORDERED: SUCR1TAB56 PO (23:03)
[2024-12-14] MEDS ORDERED: SPIR-10 PO (23:03)
[2024-12-14] MEDS ORDERED: HOME MED LIST COMPLETE! XX SCH (23:05)
[2024-12-14] MEDS: VASOPRESSIN IN 0.9 % NACL 20 UNIT in IV 1 EA IV SCH (23:06)
[2024-12-15] MEDS: NS (Normal Saline) 0.9% 2,100 ML in IV 1 EA IV ONE (00:36)
[2024-12-15] MEDS: PIPERACILLIN/TAZOBACTAM SOD 4.5 GM in DEXTROSE 5% (D5W) ADV/MINI-BAG 50 ML IV ONE (00:52)
[2024-12-15 01:36] VITALS: BP 104/59; TEMP 95.6; O2SAT 99
[2024-12-15 03:30] VITALS: BP 100/53; TEMP 97.8; O2SAT 98
== END 2024-12-15 06:22 | disposition short-term general hospital (02) ==
LOC: M ED 20:44 → EDBD 20:44 → M ED 12-15 06:22
DX: K92.2 Gastrointestinal hemorrhage, unspecified (principal); K92.0 Hematemesis; I45.81 Long QT syndrome; I10 Essential (primary) hypertension; K27.9 Peptic ulcer, site unspecified, unspecified as acute or chronic, without hemorrhage or perforation; E78.5 Hyperlipidemia, unspecified; Z86.79 Personal history of other diseases of the circulatory system; Z98.84 Bariatric surgery status; Z88.2 Allergy status to sulfonamides; Z79.82 Long term (current) use of aspirin; Z79.02 Long term (current) use of antithrombotics/antiplatelets; Z79.899 Other long term (current) drug therapy
CPT/HCPCS: 36430; 74174; 80047; 80076; 82550; 82553; 83605; 83690; 84484; 85025; 85610; 85730; 86850; 86900; 86901; 86920; 87040; 93005; 93041; 96365; 96366; 96367; 96375; 99285; J2405; J2470; J2543; J2598; P9016; Q9967

== ENCOUNTER → 2025-03-23 | Outpatient (REF) | payer MEDICARE, MEDICAID ==
[~2025-03-23] MED LIST changes: +ATOR40TA75 PO; +D-10TAB3 PO; +DULO1CAP6 PO; +ECOT81TA5 PO; +PANT40TA29 PO; +ROPI0.5T33 PO; +SPIR-10 PO; +SUCR1TAB56 PO
== END ==
LOC: M LAB REF 15:29
PROVIDERS: ATTEND Family Medicine
DX: B07.9 Viral wart, unspecified (principal)